=== PATIENT | female | born 1955 | race Caucasian/White ===

== ENCOUNTER → 2017-09-11 | Outpatient (CLI) | payer OTHER ==
[2017-09-11] MEDS: REGADENOSON 0.4 MG/5 ML DISP.SYRIN. IV (08:15)
== END | disposition home or self-care (01) ==
LOC: NM 07:41
DX: I36.1 Nonrheumatic tricuspid (valve) insufficiency (principal); I27.20 Pulmonary hypertension, unspecified; I10 Essential (primary) hypertension; E78.5 Hyperlipidemia, unspecified; E78.00 Pure hypercholesterolemia, unspecified; J44.9 Chronic obstructive pulmonary disease, unspecified
CPT/HCPCS: 78452; 93017; 93306; 96374; 96375; 96376; A9500; J2785

== ENCOUNTER 2018-02-06 06:04 | Day surgery (SDC) | payer OTHER ==
[~2018-02-06] VITALS: Ht 167.6 cm; Wt 71.7 kg
[~2018-02-06 06:04] MED LIST: ACET325T9 PO; ALBU0.63 IH; AMIT10TA PO; ATOR10TA PO; ATOR20TA PO; AZEL137S3 NS; BUDE10.2 IH; BYSTOLIC10 MG PO; BYSTOLIC20 MG PO; CETI10TA22 PO; GABA-585 PO; GLYC10.7 IH; GUAI12003 PO; HYDR-2145 PO; METF500T16 PO; MONT10TA6 PO; POTA10PI IV; POTA10TA31 PO; POTA20TA82 PO; PROTONIX PO; ROFL500T7 PO; SULF1TAB24 PO; VITAMIN D PO; XOPENEX HFA15 GM IH; ZOLP10TA PO
[2018-02-06] MEDS ORDERED: fentaNYL PF VIAL 100 MCG/2 ML VIAL IV PRN ×2 (07:00)
[2018-02-06] MEDS ORDERED: HYDROmorphone 2 MG/ML VIAL IV PRN (07:00)
[2018-02-06] MEDS ORDERED: IV RINGERS,LACTATED 1000ML 1,000 ML IV SCH (07:00)
[2018-02-06] MEDS ORDERED: LIDOCAINE 1% PF 2 ML VIAL. ID PRN (07:00)
[2018-02-06] MEDS ORDERED: PROPOFOL 20 ML IV ONE ×2 (07:00→07:39)
[2018-02-06] MEDS ORDERED: MORPHINE SULFATE 2 MG/ML VIAL. IV PRN (07:00)
[2018-02-06] MEDS ORDERED: ONDANSETRON PF 4 MG/2 ML VIAL. IV PRN (07:00)
[2018-02-06] MEDS ORDERED: PROCHLORPERAZINE 10 MG/2 ML VIAL. IV PRN (07:00)
[2018-02-06] MEDS ORDERED: LIDOCAINE 2% PF Vial for OR 5 ML VIAL. ONE ×4 (07:01→07:19)
[2018-02-06] MEDS ORDERED: ONDANSETRON PF 4 MG/2 ML VIAL. ONE ×2 (07:01)
[2018-02-06] MEDS ORDERED: DEXAMETHASONE SOD PHOS 20 MG/5 ML VIAL. ONE (07:01)
[2018-02-06] MEDS ORDERED: LIDOCAINE 1% 20 ML VIAL. ONE (07:02)
[2018-02-06] MEDS ORDERED: fentaNYL PF VIAL 100 MCG/2 ML VIAL ONE (07:02)
[2018-02-06] MEDS ORDERED: BUPIVACAINE MPF 0.5% 30 ML VIAL. ONE (07:02)
[2018-02-06] MEDS ORDERED: MIDAZOLAM HCL/PF 2 MG/2 ML VIAL. ONE (07:03)
--- NOTE | 2018-02-06 07:07 | DISCH ---
DISCHARGE INSTRUCTIONS Condition on Discharge Condition on Discharge: Stable Activity After Discharge Activity Instructions for Disc: Other, see below Other activity instructions: wiggle fingers Bathing Instructions: Shower-keep dressing dry Lifting Instructions after Dis: No heavy lifting Weight Bearing Status after Di: As tolerated Diet after Discharge Diet after Discharge: Regular Wound Incision Care Wound/Incision Care: Ice to area for comfort, Keep wound/cast CDI, Keep wound elevated, Change dressing Other wound/incision instructi: ok to change dressing in [address] after DC Call your doctor for: Concerns you may have Follow-Up Follow up with: Kayla in 2 wks ROMAIN CARRERA II, MD Feb 06, 2018 07:07
[2018-02-06] MEDS ORDERED: CLINDAMYCIN 900MG PREMIX 50 ML IV ONE (08:00)
--- NOTE | 2018-02-06 08:12 | PDOC4 ---
Operative Note Operative Note Date of procedure: 01/29/2018 Surgeon: Benitez Carrera Preoperative diagnosis: #1 right carpal tunnel syndrome #2 right trigger finger, first digit Postoperative diagnosis: Same Procedures performed: #1 open right carpal tunnel release Open right first digit trigger finger release Anesthesia: Jennifer block with sedation Tourniquet time: 30 minutes Blood loss: 5 mL Complications: None Findings: Normal-appearing median nerve, thickened nodule in the flexor tendon at thumb Reason for procedure: Patient is very pleasant 63-year-old female who have been following for her carpal tunnel syndrome and trigger thumb of her right hand. She had tried conservative therapies including anti-inflammatories, nighttime splinting, and carpal tunnel injections. These failed to provide her adequate relief from her symptoms and therefore we discussed the risks, benefits, and alternatives to the above surgery and she wished to proceed. Description of procedure: Patient was greeted in the preoperative area by myself for the correct extremity was verified and marked. She was brought back to the operative suite and box were started as she was brought back. Once in the operating room, she had successful induction of a Jennifer block with sedation. The right upper extremity was then prepped and draped in our usual sterile fashion we conducted our standard preoperative timeout. After this, I identified a crease in her hand from her distal wrist crease and incised through this into her palm. I used bipolar cautery for hemostasis. I used a mosquito to spread down to the level of the palmar fascia and placed a self- retaining retractor. The palmar fascia was incised in line with the skin incision. I repositioned my retractor. Identified the transverse carpal ligament and release this sharply with a scalpel. I placed a Ragnell retractor distally and into my release with the tenotomy into the palm. I then performed the same maneuver to release the distal antebrachial fascia and an ulnar directed fashion into the wrist. I used the tip of the tenotomies palpate along the course of the nerve to ensure that accomplished a complete release and I was confident I had. I then directed my attention to her thumb and palpated for the nodule and made an incision, proximal 1 cm over the neck of the first metacarpal. Bipolar cautery was used for hemostasis. I used a mosquito clamp to spread above the tendon longitudinally. Identified the A1 quique and release this with tenotomy scissors. I then delivered the tendon from the operative field with a mosquito to help and try to accomplish a complete release. After this, irrigated both incisions out. I then closed the incisions with simple interrupted 3-0 nylon. I then injected a local anesthetic mixture noted to the mary-incisional skin at both areas. Xeroform followed by a soft bulky dressing was applied to her hand and thumb. No complications. All counts correct 2 prior to wound closure. At the inclusion of surgery, she was awakened from her anesthetic and the tourniquet was let down. She was transferred gently supine to the recovery room cart. Postoperative plan is to discharge her home. Active range of motion at wrist and fingers was encouraged. Wound care was discussed and given written form. She will follow up with me in 2 weeks, sooner should a problem arise. BENITEZ CARRERA II, MD Feb 06, 2018 08:11
[2018-02-06] MEDS ORDERED: OXYC1TAB15 PO (08:18)
[2018-02-06] MEDS ORDERED: DOCU-109 PO (08:19)
[2018-02-06] MEDS ORDERED: ONDA8TAB9 SL (08:21)
[2018-02-06] MEDS ORDERED: oxyCODONE/APAP 5/325 1 TAB TABLET PO ONE (08:30)
[2018-02-06 09:39] VITALS: BP 116/68
== END 2018-02-06 10:00 | disposition home or self-care (01) ==
LOC: SURG 06:04
PROVIDERS: ATTEND Orthopaedic Surgery Sports Medicine
DX: G56.01 Carpal tunnel syndrome, right upper limb (principal); M65.311 Trigger thumb, right thumb; Z98.890 Other specified postprocedural states; Z88.1 Allergy status to other antibiotic agents; Z88.5 Allergy status to narcotic agent; Z91.041 Radiographic dye allergy status; Z88.6 Allergy status to analgesic agent; Z91.013 Allergy to seafood; Z88.8 Allergy status to other drugs, medicaments and biological substances
CPT/HCPCS: 26055; 64721; 82962; J2001; J2250; J2704; J3490; J1100; J2405; J3010

== ENCOUNTER 2019-05-21 15:53 | Inpatient (IN) | payer BC, OTHER ==
[~2019-05-21] VITALS: Ht 167.6 cm; Wt 73.4 kg
[~2019-05-21 15:53] MED LIST changes: -CETI10TA22 PO; +CETI10TA24 PO; +DOCU-109 PO; +MONT10TA49 PO; -MONT10TA6 PO; +ONDA8TAB9 SL; +OXYC1TAB15 PO; +POTA20TA4 PO; -POTA20TA82 PO
--- NOTE | 2019-05-21 16:23 | PHYS DOC ---
Past Medical History Past Medical History: Asthma, Bronchitis, High Cholesterol, Hypertension, Other Additional Past Medical Histor: PE, DVT, bulging discs Past Surgical History: Knee Replacement, Tonsillectomy, Other Additional Past Surgical Histo: IVC filter Smoking Status: Never Smoker Alcohol Use: None Drug Use: None Adult General Chief Complaint Chief Complaint: CHEST PAIN HPI HPI Patient is a 64 year old [female who presents with chest pressure. Patient reports for the last 12 hours. States that she started to feel a bit of pressure last night, today and the pressures continued. States she has a history of prior DVT, prior pulmonary embolism, had an IVC filter placed, which had since dislodged and ended up in her lungs. Reports she has chronic chest pain due to the IVC filter in her lungs, however the discomfort she feels today is different. Patient denies any nausea. Does states she has noticed some swelling in her feet, with some increased swelling mostly behind her knees. Denies cough. Does states she also has had some increased exertional dyspnea over the last few days. Reports her discomfort today is just a pressure in her chest Review of Systems Review of Systems Constitutional: Denies fever or chills [] Eyes: Denies change in visual acuity, redness, or eye pain [] HENT: Denies nasal congestion or sore throat [] Respiratory: Denies cough does report she feels short of breath Cardiovascular: No additional information not addressed in HPI [] GI: Denies abdominal pain, nausea, vomiting, bloody stools or diarrhea [] : Denies dysuria or hematuria [] Musculoskeletal: Denies back pain or joint pain reports she feels her lower extremities are more swollen [] Integument: Denies rash or skin lesions [] Neurologic: Denies headache, focal weakness or sensory changes [] Endocrine: Denies polyuria or polydipsia [] All other systems were reviewed and found to be within normal limits, except as documented in this note. Current Medications Current Medications Current Medications Medications (Trade) Dose Ordered Sig/Mitra Start Time Stop Time Status Last Admin Dose Admin Enoxaparin Sodium (Lovenox 80mg Syringe) 70 mg 1X ONCE 05/21/19 18:30 05/21/19 18:38 DC 05/21/19 19:11 70 MG Ondansetron HCl (Zofran) 4 mg PRN Q8HRS PRN 05/21/19 18:30 05/22/19 18:29 05/21/19 19:11 4 MG Sodium Chloride 1,000 ml @ 100 mls/hr Q10H 05/21/19 18:30 05/22/19 18:29 05/21/19 19:12 100 MLS/HR Allergies Allergies Allergies Coded Allergies Type Severity Reaction Last Updated Verified Iodinated Contrast Media Allergy Intermediate (allergy to shellfish) 02/06/18 Yes amoxicillin Allergy Intermediate 02/06/18 Yes azithromycin Allergy Intermediate 02/06/18 Yes duloxetine Allergy Intermediate 02/06/18 Yes formoterol Allergy Intermediate 02/06/18 Yes levofloxacin Allergy Intermediate 02/06/18 Yes losartan Allergy Intermediate 02/06/18 Yes mometasone furoate Allergy Intermediate 02/06/18 Yes nickel Allergy Intermediate 02/06/18 Yes pregabalin Allergy Intermediate 02/06/18 Yes shellfish derived Allergy Intermediate 02/06/18 Yes morphine Adverse Reaction Intermediate nausea and vomiting 02/06/18 Yes Physical Exam Physical Exam Constitutional: Well developed, well nourished, no acute distress, non-toxic appearance. [] HENT: Normocephalic, atraumatic, oropharynx moist, no oral exudates, nose normal. [] Eyes: PERRLA, EOMI, conjunctiva normal, no discharge. [] Neck: Normal range of motion, no tenderness, supple, no stridor. [] Cardiovascular:Heart rate regular rhythm, no murmur [] Lungs & Thorax: Bilateral breath sounds clear to auscultation speaks in multiple word sentences, however does appear to have mild dyspnea, no wheezing noted [] Abdomen: Bowel sounds normal, soft, no tenderness, no masses, no pulsatile masses. [] Skin: Warm, dry, no erythema, no rash. [] Back: No tenderness, no CVA tenderness. [] Extremities: No tenderness, no cyanosis, no clubbing, ROM intact, no edema. No swelling noted. No lesions noted to lower legs. [] Neurologic: Alert and oriented X 3, normal motor function, normal sensory function, no focal deficits noted. [] Psychologic: Affect normal, judgement normal, mood normal. [] Current Patient Data Vital Signs Vital Signs Date Time Temp Pulse Resp B/P (MAP) Pulse Ox O2 Delivery O2 Flow Rate FiO2 05/21/19 18:00 70 21 135/71 (92) 97 Room Air 05/21/19 16:12 98.4 98.4 Lab Values Laboratory Tests Test 05/21/19 16:05 White Blood Count 5.9 x10^3/uL (4.0-11.0) Red Blood Count 4.30 x10^6/uL (3.50-5.40) Hemoglobin 13.3 g/dL (12.0-15.5) Hematocrit 39.2 % (36.0-47.0) Mean Corpuscular Volume 91 fL (79-100) Mean Corpuscular Hemoglobin 31 pg (25-35) Mean Corpuscular Hemoglobin Concent 34 g/dL (31-37) Red Cell Distribution Width 12.9 % (11.5-14.5) Platelet Count 281 x10^3/uL (140-400) Neutrophils (%) (Auto) 52 % (31-73) Lymphocytes (%) (Auto) 37 % (24-48) Monocytes (%) (Auto) 7 % (0-9) Eosinophils (%) (Auto) 3 % (0-3) Basophils (%) (Auto) 1 % (0-3) Neutrophils # (Auto) 3.1 x10^3/uL (1.8-7.7) Lymphocytes # (Auto) 2.2 x10^3/uL (1.0-4.8) Monocytes # (Auto) 0.4 x10^3/uL (0.0-1.1) Eosinophils # (Auto) 0.2 x10^3/uL (0.0-0.7) Basophils # (Auto) 0.1 x10^3/uL (0.0-0.2) Prothrombin Time 12.4 SEC (11.7-14.0) Prothrombin Time INR 1.0 (0.8-1.1) D-Dimer (Adelia) 0.60 ug/mlFEU (0.00-0.50) H Sodium Level 141 mmol/L (136-145) Potassium Level 3.6 mmol/L (3.5-5.1) Chloride Level 102 mmol/L (98-107) Carbon Dioxide Level 30 mmol/L (21-32) Anion Gap 9 (6-14) Blood Urea Nitrogen 18 mg/dL (7-20) Creatinine 1.0 mg/dL (0.6-1.0) Estimated GFR (Cockcroft-Gault) 56.0 BUN/Creatinine Ratio 18 (6-20) Glucose Level 97 mg/dL (70-99) Calcium Level 9.5 mg/dL (8.5-10.1) Magnesium Level 1.8 mg/dL (1.8-2.4) Total Bilirubin 0.3 mg/dL (0.2-1.0) Aspartate Amino Transferase (AST) 17 U/L (15-37) Alanine Aminotransferase (ALT) 23 U/L (14-59) Alkaline Phosphatase 82 U/L (46-116) Troponin I Quantitative < 0.017 ng/mL (0.000-0.055) KI-Wpf-U-Type Natriuretic Peptide 104 pg/mL (0-124) Total Protein 7.6 g/dL (6.4-8.2) Albumin 4.2 g/dL (3.4-5.0) Albumin/Globulin Ratio 1.2 (1.0-1.7) Lipase 225 U/L (73-393) Laboratory Tests 05/21/19 16:05 Laboratory Tests 05/21/19 16:05 EKG EKG Normal sinus rhythm, no STEMI per Dr. Roche at 1605 [] Radiology/Procedures Radiology/Procedures No radiographic evidence for acute cardiopulmonary process. Per Dr Valle, Radiology[] Course & Med Decision Making Course & Med Decision Making Pertinent Labs and Imaging studies reviewed. (See chart for details) [Discussed findings with patient, with history of prior DVT and pulmonary embolism, with shortness of breath, chest discomfort, elevated d-dimer, and need to further evaluate for pulmonary embolism. Discussed patient allergy, reports iodine makes her throat close up, rash, shortness of breath. Patient does report she has had a VQ scan in the past. Patient agreeable to admission for VQ scan if needed, will discuss with Dr. Chairez PERC - 2 ] Discussed with Dr. Chairez, agrees to admission. Plan to administer anticoagulant here. With plan for VQ scan tomorrow. Will monitor labs tonight. Patient agreement with plan with no further questions or concerns. Dragon Disclaimer Dragon Disclaimer This electronic medical record was generated, in whole or in part, using a voice recognition dictation system. Departure Departure Impression: Primary Impression: Elevated d-dimer Additional Impression: Shortness of breath Disposition: ADMITTED INPATIENT Admitting Physician: Margi Chairez Condition: STABLE Referrals: MARGI CHAIREZ MD (PCP) Problem Qualifiers ARPITA WHEAT APRN May 21, 2019 16:23
--- NOTE | 2019-05-21 16:25 | EKG ---
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
[2019-05-21 16:30] LABS: BASO # 0.1 x10^3/uL (0.0-0.2); BASO % 1 % (0-3); EOS # 0.2 x10^3/uL (0.0-0.7); EOS % 3 % (0-3); HEMATOCRIT 39.2 % (36.0-47.0); HEMOGLOBIN 13.3 g/dL (12.0-15.5); LYMPH # 2.2 x10^3/uL (1.0-4.8); LYMPH % 37 % (24-48); MEAN CORPUSCULAR HEMOGLOBIN 31 pg (25-35); MEAN CORPUSCULAR HGB CONC 34 g/dL (31-37); MEAN CORPUSCULAR VOLUME 91 fL (79-100); MONO # 0.4 x10^3/uL (0.0-1.1); MONO % 7 % (0-9); NEUT # 3.1 x10^3/uL (1.8-7.7); NEUT % 52 % (31-73); PLATELET COUNT 281 x10^3/uL (140-400); RED CELL DISTRIBUTION WIDTH 12.9 % (11.5-14.5); WHITE BLOOD COUNT 5.9 x10^3/uL (4.0-11.0)
[2019-05-21 16:38] LABS: PROTHROMBIN TIME PATIENT 12.4 SEC (11.7-14.0)
[2019-05-21 16:41] LABS: D-DIMER 0.6 ug/mlFEU (0.00-0.50)
[2019-05-21 16:50] LABS: CALCIUM 9.5 mg/dL (8.5-10.1); POTASSIUM 3.6 mmol/L (3.5-5.1)
[2019-05-21 16:58] LABS: ALBUMIN 4.2 g/dL (3.4-5.0); ALBUMIN/GLOBULIN RATIO 1.2 (1.0-1.7); MAGNESIUM 1.8 mg/dL (1.8-2.4); TOTAL BILIRUBIN 0.3 mg/dL (0.2-1.0); TOTAL PROTEIN 7.6 g/dL (6.4-8.2)
--- NOTE | 2019-05-21 18:12 | RAD ---
EXAM: AP View of the chest DATE: 05/21/2019 5:31 PM INDICATION: Shortness of air COMPARISON: 01/06/2016 FINDINGS: The heart is not enlarged. Mediastinal and hilar contours are normal. No focal parenchymal airspace opacity. No pleural effusion or pneumothorax. Shoulder joint degenerative changes are seen. IMPRESSION: 1. No radiographic evidence for acute cardiopulmonary process. Electronically signed by: William Valle MD (05/21/2019 6:09 PM) [id number]
[2019-05-21] MEDS: ONDANSETRON PF 4 MG/2 ML VIAL. IV PRN (19:11)
[2019-05-21] MEDS: IV NORMAL SALINE 1000ML BAG 1,000 ML IV SCH (19:12)
--- NOTE | 2019-05-21 21:00 | NUR ---
The patient, MAURIZIO ARRIAGA, 64 y/o, F admitted by MARGI LOVETT MD, was given written information regarding hospital policies, unit procedures and contact persons. patient transferred to room via wheelchair by ED staff member. Valuables were checked and noted. Patient denies any needs at this time. patient is laying in bed watching TV at this time. This RN will continue to monitor the patient at this time.
[2019-05-21] MEDS ORDERED: PANT20TA2 PO (22:12)
[2019-05-21 22:47] VITALS: BP 109/58
[2019-05-21] MEDS ORDERED: ZOLPIDEM 5 MG TABLET. PO PRN (23:00)
[2019-05-21] MEDS: CETIRIZINE HCL 10 MG TABLET. PO SCH (23:42)
[2019-05-21] MEDS: ZOLPIDEM 5 MG TABLET. PO SCH (23:42)
[2019-05-21] MEDS: ATORVASTATIN CALCIUM 20 MG TABLET PO SCH (23:42)
[2019-05-21] MEDS: PANTOPRAZOLE 40 MG TABLET.DR. PO SCH (23:42)
[2019-05-21] MEDS: AMITRIPTYLINE HCL 10 MG TABLET. PO SCH (23:42)
[2019-05-21] MEDS: GABAPENTIN 100 MG CAPSULE. PO SCH (23:42)
[2019-05-21] MEDS: MONTELUKAST SODIUM 10 MG TABLET. PO SCH (23:44)
[2019-05-22 03:06] VITALS: BP 87/50
[2019-05-22] MEDS: IV NORMAL SALINE 1000ML BAG 1,000 ML IV SCH ×2 (03:34→13:33)
[2019-05-22] MEDS: ONDANSETRON PF 4 MG/2 ML VIAL. IV PRN (03:37)
[2019-05-22 07:00] VITALS: BP 98/62
[2019-05-22] MEDS: PANTOPRAZOLE 40 MG TABLET.DR. PO SCH ×2 (07:59→16:34)
[2019-05-22] MEDS: metFORMIN 500 MG TABLET PO SCH ×2 (07:59→17:11)
[2019-05-22] MEDS: GABAPENTIN 100 MG CAPSULE. PO SCH ×3 (08:54→21:09)
--- NOTE | 2019-05-22 09:33 | NUR ---
SW following. Discussed with RN, pt from home with . Dr Garza has been consulted. RN advised no SW needs at this time, pt gets around fine. SW will continue to follow for any discharge needs.
--- NOTE | 2019-05-22 09:34 | HP ---
ADMIT DATE: 05/21/2019 CHIEF COMPLAINT AND HISTORY OF PRESENT ILLNESS: This 64-year-old white female is followed in my office. The patient presented on the day of admission with chest pressure. She was sent to the Emergency Room with a history of multiple DVTs and PEs. She has a prior IVC filter that was dislodged and winded up in the lungs according to her. The pressure that she is feeling on the day of admission is different. She has noted some bilateral lower extremity edema, particularly in her knee area. She has had increased and exertional dyspnea over the last few days, had an elevated D-dimer, had IODINATED CONTRAST allergy and was unable to do a V/Q on the day of admission, was admitted overnight for V/Q scanning and further evaluation. PAST MEDICAL HISTORY: Remarkable for asthma, hyperlipidemia, hypertension, PE, DVT. PRIOR SURGICAL HISTORY: Remarkable for right knee replacement, tonsillectomy, IVC filter. SOCIAL HISTORY: She is a lifetime nonsmoker. No alcohol, no drugs. FAMILY HISTORY: Positive for atherosclerotic heart disease. MEDICATIONS: Listed on the computer and have been addressed. ALLERGIES: SHE IS ALLERGIC TO IODINE, PENICILLIN, AZITHROMYCIN, FORMOTEROL, DULOXETINE, LEVAQUIN, LOSARTAN, MOMETASONE, MORPHINE, NICKEL, PREGABALIN, SHELLFISH DERIVATIVES. REVIEW OF SYSTEMS: As mentioned above. PHYSICAL EXAMINATION: GENERAL: She is a well-developed, well-nourished white female, in no acute distress in bed. VITAL SIGNS: Stable. She is afebrile. HEENT: Unremarkable. NECK: Supple, without adenopathy or thyromegaly. CHEST: Clear to auscultation and percussion. HEART: Regular rate and rhythm without S3, S4 or murmur. ABDOMEN: Soft, nontender, without hepatosplenomegaly or masses. EXTREMITIES: Without cyanosis, clubbing or significant edema. NEUROLOGIC: She is intact. Chest x-ray is within normal limits. D-dimer is elevated. CBC is unremarkable. Troponin x 3 is negative. CMP is unremarkable. IMPRESSION: 1. Chest pressure/pain. 2. Knee pain. 3. Other problems listed above. PLAN: The patient has been admitted. We will await V/Q scanning here today. I am going to ask Ortho to see her for the knee pain while she is here and the patient will be monitored, managed and treated appropriately. MARGI LOVETT MD DR: Robbie JOB#: [id number] / [id number]
[2019-05-22 11:00] VITALS: BP 105/61
--- NOTE | 2019-05-22 14:47 | RAD ---
NUCLEAR MEDICINE PERFUSION SCAN History: Chest pain, elevated d-dimer, shortness of breath x3 days. History of DVT and PE 9 years ago. Comparison: AP chest, prior day. Technique: Perfusion portion performed after intravenous administration of 5.3 mCi Technetium 99m MAA. Multiple projection planar images of the lungs were obtained. Findings: Patient refused mask for ventilation images due to claustrophobia. Perfusion images demonstrate no perfusion defects. IMPRESSION: Perfusion only imaging. No defects are identified to suggest pulmonary embolus. Electronically signed by: Bernard Cardona MD (05/22/2019 2:43 PM) [id number]
[2019-05-22] MEDS: ACETAMINOPHEN 325 MG TABLET. PO PRN (14:58)
[2019-05-22 15:00] VITALS: BP 99/66
[2019-05-22] MEDS: MONTELUKAST SODIUM 10 MG TABLET. PO SCH (17:10)
[2019-05-22] MEDS: CETIRIZINE HCL 10 MG TABLET. PO SCH (17:11)
[2019-05-22 19:00] VITALS: BP 107/66
[2019-05-22] MEDS: AMITRIPTYLINE HCL 10 MG TABLET. PO SCH (21:09)
[2019-05-22] MEDS: ATORVASTATIN CALCIUM 20 MG TABLET PO SCH (21:09)
[2019-05-22] MEDS: ZOLPIDEM 5 MG TABLET. PO SCH (21:09)
[2019-05-22] MEDS ORDERED: ALBUTEROL SULFATE 2.5 MG/3 ML NEBU. NEB PRN (21:30)
[2019-05-22 23:00] VITALS: BP 124/69
[2019-05-23 03:00] VITALS: BP 95/61
[2019-05-23 07:00] VITALS: BP 137/81
[2019-05-23] MEDS: ALBUTEROL SULFATE 2.5 MG/3 ML NEBU. NEB SCH ×3 (07:32→15:26)
[2019-05-23] MEDS ORDERED: methylPREDNISolone ACETATE 80 MG/ML VIAL. INJ ONE (07:45)
[2019-05-23] MEDS ORDERED: BUPIVACAINE-EPI 0.5%-1:200000 MPF 30 ML VIAL. INJ ONE (07:45)
--- NOTE | 2019-05-23 08:19 | PDOC ---
GENERAL General: vss and afebrile. awake and alert. still ill defined chest pressure and some so b. VQ probably negative. with hx pulmonary hpt will ask cardiology for opinion prior to dc. VITAL SIGNS/I&O Vital Signs/I&O: Vital Signs Date Time Temp Pulse Resp B/P (MAP) Pulse Ox O2 Delivery O2 Flow Rate FiO2 05/23/19 07:34 96 Room Air 05/23/19 07:00 97.8 79 16 137/81 (99) 97.8 I & O 05/22/19 05/22/19 05/23/19 15:00 23:00 07:00 Intake Total 980 ml 120 ml 300 ml Balance 980 ml 120 ml 300 ml ALLERGIES Allergies: Allergies Coded Allergies Type Severity Reaction Last Updated Verified Iodinated Contrast Media Allergy Intermediate (allergy to shellfish) 02/06/18 Yes amoxicillin Allergy Intermediate 02/06/18 Yes azithromycin Allergy Intermediate 02/06/18 Yes duloxetine Allergy Intermediate 02/06/18 Yes formoterol Allergy Intermediate 02/06/18 Yes levofloxacin Allergy Intermediate 02/06/18 Yes losartan Allergy Intermediate 02/06/18 Yes mometasone furoate Allergy Intermediate 02/06/18 Yes nickel Allergy Intermediate 02/06/18 Yes pregabalin Allergy Intermediate 02/06/18 Yes shellfish derived Allergy Intermediate 02/06/18 Yes morphine Adverse Reaction Intermediate nausea and vomiting 02/06/18 Yes MEDS Medications: Current Medications Medications (Trade) Dose Ordered Sig/Mitra Route PRN Reason Start Time Stop Time Status Last Admin Dose Admin Acetaminophen (Tylenol) 650 mg PRN Q6HRS PRN PO MILD PAIN / TEMP 05/22/19 14:30 05/22/19 14:58 Albuterol Sulfate (Ventolin Neb Soln) 2.5 mg RTQID NEB 05/23/19 08:00 05/23/19 07:32 LAB Lab: Laboratory Tests Test 05/22/19 11:40 Troponin I Quantitative < 0.017 ng/mL (0.000-0.055) MARGI LOVETT MD May 23, 2019 08:19
[2019-05-23] MEDS: ACETAMINOPHEN 325 MG TABLET. PO PRN ×2 (08:38→13:39)
[2019-05-23] MEDS: metFORMIN 500 MG TABLET PO SCH ×2 (08:38→17:16)
[2019-05-23] MEDS: PANTOPRAZOLE 40 MG TABLET.DR. PO SCH ×2 (08:38→17:16)
[2019-05-23] MEDS: GABAPENTIN 100 MG CAPSULE. PO SCH ×2 (08:38→13:45)
--- NOTE | 2019-05-23 10:31 | CONS ---
DATE OF CONSULTATION: 05/23/2019 REQUESTING PHYSICIAN: Dr. Chairez. REASON FOR CONSULTATION: Left knee pain and swelling. HISTORY OF PRESENT ILLNESS: The patient is a 64-year-old female who presented to the hospital for chest pressure and has a history of previous DVT and pulmonary embolism. She underwent a ventilation perfusion scan with low probability. In terms of her orthopedic issues, she has had left knee pain and swelling increased with activity and resolves with rest, in fact a couple of days that she has been in the hospital. Her left knee swelling has gone down significantly and she indicates, however, when she gets back to any type of activity it always returns. Other than anti-inflammatory use, she has had no other real treatment or injections in the left knee. She did have a right total knee arthroplasty elsewhere several years prior, and I think has been seen by Dr. Garza in the clinic, but has less than ideal results from her total knee arthroplasty on the right. She cannot get it all the way out straight. She has difficulty descending stairs and the bending is short of 90 degrees, making it difficult for her to get leg under her and up out of the chair. PAST MEDICAL HISTORY: Significant for history of pulmonary embolism, DVT as noted above, hypertension, hyperlipidemia and asthma. PAST SURGICAL HISTORY: Right total knee arthroplasty, placement of an IVC filter and a tonsillectomy. SOCIAL HISTORY: Denies smoking, alcohol or drug use. Otherwise, is very active. FAMILY HISTORY: Significant for heart disease. MEDICATIONS: List is reviewed. ALLERGIES: SHE HAS MULTIPLE ALLERGIES INCLUDING PENICILLIN, IODINE, AZITHROMYCIN, LEVAQUIN, LOSARTAN, MOMETASONE, DULOXETINE, MORPHINE, NICKEL, PREGABALIN, SHELLFISH AND FORMOTEROL. REVIEW OF SYSTEMS: Significant really for the left knee pain and swelling and the chronic right knee stiffness. She denies any focal weakness, numbness, tingling or other extremity or joint pain. PHYSICAL EXAMINATION: GENERAL: A pleasant, cooperative 64-year-old female, alert and oriented, no acute distress. EXTREMITIES: On examination of the lower extremities, range of motion of the right knee is about 6 degrees short of full extension to about 85 degrees knee flexion. She has good ligament stability and patellofemoral tracking, no effusion is noted. Incision is well healed. Examination of the left knee reveals overall good alignment. Ligaments are stable. She has good patellofemoral tracking with moderate crepitus. No tilt or instability. No effusion is present. No fullness in the popliteal fossa. She has no evidence of calf swelling or tenderness. Normal alignment, stability, bilateral hips and ankles and overall intact motor function, distal pulses, sensation, reflexes, skin in both lower extremities throughout. IMAGING: Previous standing x-rays from 2016 show total knee arthroplasty on the right and some mild degenerative changes on the left knee. IMPRESSION: Left knee pain, swelling, and degenerative changes. TREATMENT PLAN: She has really had now been very low probability for pulmonary embolism. No current swelling in the left knee, but she does indicate the recurrence of the symptoms with any type of activity and after discussing treatment options of the three general categories of injection for example corticosteroid, viscosupplementation or biological, we discussed the relative risks and benefits of each. Viscosupplementation is not an option at all in the hospital with insurance restrictions and she does wish to proceed with a corticosteroid injection, which was administered after informed consent was obtained on the left knee under sterile conditions from a suprapatellar approach. I would be happy to see her back on an as necessary basis. I told her that Dr. Chairez could also do these in his office. As she has [employer], it would be unlikely that they would cover viscosupplementation based on experience and I did have a fairly detailed discussion with her that unfortunately the fact that she had stiffness in the right knee is likely predictive of stiffness after a knee arthroplasty on the other side and that would certainly be my last resort as far as recommendations, especially since she is not very happy with the overall result of the knee arthroplasty on the right, which was done elsewhere a while ago. She indicated understanding of this, appreciated the discussion and followup can be on an as needed basis based on from an orthopedic standpoint. MARY KEE MD DR: LATISHA/becki JOB#: [id number] / [id number]
--- NOTE | 2019-05-23 10:56 | NUR ---
SW following. Discussed with RN, pt transferring to [address] [place] [address]. Pt had left knee injected, doing better today per RN. RN anticipates no SW needs. TIERRA will continue to follow. Addendum: 05/23/19 at 1105 by ELIZABET MAYORGA CORRECTION pt did not have left knee injected - wrong pt, please disregard.
[2019-05-23 11:00] VITALS: BP 107/69
[2019-05-23] MEDS ORDERED: METOPROLOL TART IMMED RELEASE 50 MG TABLET. PO SCH (11:00)
[2019-05-23] MEDS ORDERED: hydroCHLOROthiazide 25 MG TABLET PO SCH (11:00)
--- NOTE | 2019-05-23 11:46 | PDOC2 ---
LUDWIN ABURTO [employer] 05/23/19 1146: CARDIAC CONSULT DATE OF CONSULT Date of Consult DATE: 05/23/19 TIME: 11:40 REASON FOR CONSULT Reason for Consult: Chest pain REFERRING PHYSICIAN Referring Physician: Contreras SOURCE Source: Chart review, Patient HISTORY OF PRESENT ILLNESS HISTORY OF PRESENT ILLNESS This is a pleasant 64 yo female admitted for complains of chest pain. Reports that she has intermittent chest heaviness nonradiating. No associated HOOD. Pt is able to load the laundry and carry it up and down the basement without difficulty. She appears anxious and her chest pain is left of the midsternal border that is reproducible with palpation. Denies any heartburn and with use of PPI. Reports no NSAID therapy but takes tylenol for pain. No recent intractable coughing, falls or any injury. She is worried about pulmonary HTN and no noted edema and negative for orthopnea and PND. Clinically no CHF. Reports no changes to activity tolerance. She is also worried about a wire in her vena cava to which her IVC filter was removed before but a part of it "wire" was left in place as this was not able to be retrieved. Her VSS and Hgb is stable. No abd pain nor significant back pain. Denies any palpitations or passing out. PAST MEDICAL HISTORY Cardiovascular: HTN, Hyperlipidemia Pulmonary: Asthma, Pulmonary embolus (with DVT) CENTRAL NERVOUS SYSTEM: Carpal Tunnel Syndrome, Periperal neuropathy Psych: Anxiety Musculoskeletal: low back pain, Osteoarthritis Renal/: UTI Endocrine: Diabetes (2) PAST SURGICAL HISTORY Past Surgical History: Total knee replacement (right), Other (IVC filter placement and removal) SOCIAL HISTORY Smoke: No ALCOHOL: none Lives: with Family CURRENT MEDICATIONS CURRENT MEDICATIONS Current Medications Medications (Trade) Dose Ordered Sig/Mitra Route PRN Reason Start Time Stop Time Status Last Admin Dose Admin Acetaminophen (Tylenol) 650 mg PRN Q6HRS PRN PO MILD PAIN / TEMP 05/22/19 14:30 05/23/19 08:38 Albuterol Sulfate (Ventolin Neb Soln) 2.5 mg RTQID NEB 05/23/19 08:00 05/23/19 11:18 Methylprednisolone Acetate (DEPO-Medrol 80MG VIAL) 80 mg 1X ONCE INJ 05/23/19 07:45 05/23/19 07:52 DC 05/23/19 08:50 Bupivacaine HCl/ Epinephrine Bitart (Sensorcain-Epi 0.5%-1:695995 Mpf) 30 ml 1X ONCE INJ 05/23/19 07:45 05/23/19 07:52 DC 05/23/19 08:50 ALLERGIES ALLERGIES: Coded Allergies: Iodinated Contrast Media (Verified Allergy, Intermediate, (allergy to shellfish), 02/06/18) amoxicillin (Verified Allergy, Intermediate, 02/06/18) azithromycin (Verified Allergy, Intermediate, 02/06/18) duloxetine (Verified Allergy, Intermediate, 02/06/18) formoterol (Verified Allergy, Intermediate, 02/06/18) levofloxacin (Verified Allergy, Intermediate, 02/06/18) losartan (Verified Allergy, Intermediate, 02/06/18) mometasone furoate (Verified Allergy, Intermediate, 02/06/18) nickel (Verified Allergy, Intermediate, 02/06/18) pregabalin (Verified Allergy, Intermediate, 02/06/18) shellfish derived (Verified Allergy, Intermediate, 02/06/18) morphine (Verified Adverse Reaction, Intermediate, nausea and vomiting, 02/06/18) ROS Review of System 14 point ROS evaluated with pertinent positives noted per HPI PHYSICAL EXAM General: Alert, Oriented X3, Cooperative, No acute distress HEENT: Atraumatic, Mucous membr. moist/pink Lungs: Clear to auscultation, Normal air movement Heart: Regular rate (SR), Normal S1, Normal S2, Other (2/6 systolic murmur to LLS border) Abdomen: Soft, No tenderness Extremities: No cyanosis, No edema Skin: No breakdown, No significant lesion Neuro: Normal speech, Sensation intact Psych/Mental Status: Mood NL MUSCULOSKELETAL: Osteoarthritic changes both hands VITALS/I&O VITALS/I&O: Vital Signs Date Time Temp Pulse Resp B/P (MAP) Pulse Ox O2 Delivery O2 Flow Rate FiO2 05/23/19 11:20 Room Air 05/23/19 07:34 96 05/23/19 07:00 97.8 79 16 137/81 (99) 97.8 I & O 05/22/19 05/22/19 05/23/19 15:00 23:00 07:00 Intake Total 980 ml 120 ml 300 ml Balance 980 ml 120 ml 300 ml ECHOCARDIOGRAM ECHOCARDIOGRAM <Conclusion> The left ventricular systolic function is normal. The ejection fraction is estimated at 55-60%. There is normal LV segmental wall motion. Mild tricuspid regurgitation. There is mild pulmonary hypertension. The PA pressure was estimated at 35 mmHg. There is no evidence of significant pericardial effusion. DATE: 09/11/17 0916 STRESS TEST STRESS TEST Conclusion 1. No evidence of EKG changes with stress testing. 2. Normal perfusion at stress/rest. 3. Low risk study. 4. EF > 60%. DATE: 09/13/17 1024 ASSESSMENT/PLAN ASSESSMENT/PLAN 1. Atypical chest pain: trops nml. EKG SR no acute changes. suspect MSK and anxiety. Good functional capacity 2. HTN: controlled 3. HLP 4. DM2 5. Prior IVC filter removal with hx of PE: V/Q low probability. pt concern about wire being left upon retrieval. Will defer to PCP 6. Anxiety Recommendations 1. Continue secondary prevention measures Continue home PPI 2. Could consider for outpt stress test if symptoms persist but at this time no further testing 3. Follow up in office SUHAS ROSS MD 05/24/19 1348: CARDIAC CONSULT ASSESSMENT/PLAN ASSESSMENT/PLAN Late entry for 05/23/2019 Pt. seen and examined. Agree with above TRANSPORTATION ANALYST note. LUDWIN ABURTO APRN May 23, 2019 11:46 SUHAS CHRISTENSEN MD May 24, 2019 13:48
--- NOTE | 2019-05-23 11:58 | NUR ---
Patient transferred to [address] [place] [id number] for cardiac consult and telemetry. Report called to MIGUE Foote. Patient was transferred via wheelchair with all personal belongings.
[2019-05-23 12:13] LABS: CHOLESTEROL/HDL RATIO 3.4
[2019-05-23 12:14] VITALS: BP 111/63
[2019-05-23 15:20] VITALS: BP 133/79
--- NOTE | 2019-05-23 18:00 | NUR ---
Escorted out patient to main entrance with belongings, IV and telemonitor taken off, and
[2019-05-23] MEDS ORDERED: POTASSIUM CHLORIDE 20 MEQ TABLET.ER. PO SCH (21:00)
--- NOTE | 2019-05-23 23:41 | DS ---
DATE OF DISCHARGE: 05/23/2019 PRIMARY DIAGNOSIS: Chest pain with shortness of breath. ADDITIONAL DIAGNOSES: 1. History of multiple pulmonary embolisms. 2. Elevated D-dimer. 3. Diabetes. 4. Left knee pain. CHIEF COMPLAINT AND HISTORY OF PRESENT ILLNESS: This 64-year-old white female admitted through the Emergency Room with shortness of breath, elevated D-dimer and inability to do a CTA of the chest due to IODINE ALLERGY. SUMMARY OF STAY: The patient was admitted, had 2 poor V/Q scanning the following day. She was unable to complete this task due to claustrophobia, but perfusion images demonstrate no perfusion deficits. Because of the chest pressure and shortness of breath, cardiology was asked to see her and felt it was atypical and did not recommend any further workup unless it persisted. She had serial negative troponins. A chest x-ray that showed no evidence of any problems. Had a CBC that was unremarkable. Chem panel done on admission that was essentially unremarkable. Again, troponins x 4 were done. Lipid panel was within normal limits with an LDL of 83. Sugars were good during the stay and always within normal limits. She complained of left knee pain involving the hastings bone for which I asked Ortho to come by and inject it with steroids, probably osteoarthritis while she was in the hospital. With Cardiology feeling no further workup was needed, the patient is discharged on 05/23/2019. DISPOSITION: The patient is discharged to home, ADA diet. ACTIVITY: As tolerated. FOLLOWUP: Office in 1 week. DISCHARGE MEDICATIONS: Listed on the med rec and have been addressed. MARGI LOVETT MD DR: BRIGETTE/becki JOB#: [id number] / [id number]
== END 2019-05-23 18:00 | disposition home or self-care (01) | DRG 554 ==
LOC: ER 15:53 → 5 SOUTH 18:31 → OBSVTOIN 05-22 14:30 → 6 SOUTH 05-23 11:35
PROVIDERS: ADMIT Family Medicine; ATTEND Family Medicine
PROC: 3E0U33Z Introduction of Anti-inflammatory into Joints, Percutaneous Approach (ICD-10-PCS; principal; 2019-05-22)
PROC: 3E0U3BZ Introduction of Anesthetic Agent into Joints, Percutaneous Approach (ICD-10-PCS; 2019-05-22)
DX: M17.12 Unilateral primary osteoarthritis, left knee (principal); R07.89 Other chest pain; E11.9 Type 2 diabetes mellitus without complications; E78.00 Pure hypercholesterolemia, unspecified; E78.5 Hyperlipidemia, unspecified; F41.9 Anxiety disorder, unspecified; G89.29 Other chronic pain; I10 Essential (primary) hypertension; Z96.651 Presence of right artificial knee joint; F40.240 Claustrophobia; J45.909 Unspecified asthma, uncomplicated; Z82.49 Family history of ischemic heart disease and other diseases of the circulatory system; Z86.711 Personal history of pulmonary embolism; Z86.718 Personal history of other venous thrombosis and embolism; Z87.440 Personal history of urinary (tract) infections; Z88.2 Allergy status to sulfonamides; Z88.8 Allergy status to other drugs, medicaments and biological substances; Z91.013 Allergy to seafood; Z79.899 Other long term (current) drug therapy; Z79.01 Long term (current) use of anticoagulants; Z90.49 Acquired absence of other specified parts of digestive tract
CPT/HCPCS: 36415; 71045; 78580; 80053; 80061; 82962; 83690; 83735; 83880; 84484; 85025; 85379; 85610; 93005; 94640; 94760; 96374; A9540; G0378; G0379; J1040; J1650; J2405; J3490; J7030; J7613

== ENCOUNTER → 2020-04-16 | Outpatient (CLI) | payer BC ==
[~2020-04-16] MED LIST changes: -CETI10TA24 PO; +CETI10TA74 PO; +FAMO10TA26 PO; +FLUC100T7 PO; +HYDR-2761 PO; +ONDA4TAB12 PO; +PANT20TA2 PO
== END ==
LOC: LAB 12:04
PROVIDERS: ATTEND Obstetrics & Gynecology
DX: Z01.812 Encounter for preprocedural laboratory examination (principal); Z20.822 Contact with and (suspected) exposure to COVID-19
CPT/HCPCS: U0003

== ENCOUNTER 2020-04-22 06:46 | Day surgery (SDC) | payer BC ==
[~2020-04-22] VITALS: Ht 167.6 cm; Wt 70.8 kg
[~2020-04-22 06:46] MED LIST changes: +AZTREONAM IV Push 1 GM VIAL. IVP PRN; +CLINDAMYCIN 900MG PREMIX 50 ML IV PRN; -HYDR-2761 PO; +HYDROmorphone 2 MG/ML VIAL IVP PRN; +IV RINGERS,LACTATED 1000ML 1,000 ML IV SCH; +MORPHINE SULFATE 2 MG/ML VIAL. IVP PRN; +PROCHLORPERAZINE 10 MG/2 ML VIAL. IVP PRN; +fentaNYL PF VIAL 100 MCG/2 ML VIAL IVP PRN
[2020-04-22] MEDS ORDERED: ENOXAPARIN 40 MG/0.4 ML SYRINGE. SQ ONE (07:30)
[2020-04-22] MEDS ORDERED: INSULIN LISPRO 100 UNIT/ML 3ML VIAL for OP,RR ONLY. SQ PRN (07:45)
[2020-04-22] MEDS ORDERED: ONDANSETRON PF 4 MG/2 ML VIAL. ONE (07:50)
[2020-04-22] MEDS ORDERED: LIDOCAINE 2% PF 5 ML VIAL. ONE (07:50)
[2020-04-22] MEDS ORDERED: DEXAMETHASONE SOD PHOS 4 MG/ML VIAL ONE ×2 (07:50→07:51)
[2020-04-22] MEDS ORDERED: FAMOTIDINE 20 MG/2 ML VIAL ONE (07:50)
[2020-04-22] MEDS ORDERED: PROPOFOL 10 MG/ML (20ML) VIAL. IV ONE (07:50)
[2020-04-22] MEDS ORDERED: MIDAZOLAM HCL/PF 2 MG/2 ML VIAL. ONE (07:53)
[2020-04-22] MEDS ORDERED: SCOPOLAMINE 1.5MG PATCH. TD SCH (09:00)
[2020-04-22] MEDS ORDERED: SILVER NITRATE STICK TP ONE ×3 (09:09→09:53)
[2020-04-22] MEDS ORDERED: PHENYLEPHRINE in 0.9% NACL PF 1 MG/10 ML SYRINGE. IV ONE (09:12)
[2020-04-22] MEDS ORDERED: SEVOFLURANE 31 TO 60 MINUTES. IH ONE (09:17)
--- NOTE | 2020-04-22 09:55 | PDOC ---
BRIEF OPERATIVE NOTE Date: Apr 22, 2020 Pre-Op Diagnosis PMB. endometrial thickening on sonogram Post-Op Diagnosis same with some evidence of scarring inside uterus Procedure Performed hs D&C with myosure Surgeon Dr. Mccann Anesthesiologist Dr. Phan Anesthesia Type: General Blood Loss 10cc IV Fluid see anesthesia records Urine Output straight cath prior Specimens Obtained endometrial currettings Findings uterus 8cm, some thickening and white scarring up near fundus Complications none Operative Note [id number] RACHEAL MCCANN MD Apr 22, 2020 09:54
[2020-04-22] MEDS ORDERED: fentaNYL PF VIAL 100 MCG/2 ML VIAL ONE ×2 (09:57→10:18)
[2020-04-22] MEDS ORDERED: NALOXONE 0.4 MG/ML VIAL. IV PRN (10:00)
[2020-04-22] MEDS ORDERED: SIMETHICONE 80 MG TAB.CHEW PO PRN (10:00)
[2020-04-22] MEDS: fentaNYL PF VIAL 100 MCG/2 ML VIAL IVP PRN ×3 (10:00→10:28)
[2020-04-22] MEDS ORDERED: 0.9 % SODIUM CHLORIDE 10 ML DISP.SYRIN. IV PRN (10:00)
[2020-04-22] MEDS ORDERED: CALCIUM CARBONATE 500 MG TAB.CHEW PO PRN (10:00)
[2020-04-22] MEDS ORDERED: MAG HYDROX/ALUMINUM HYD/SIMETH 30 ML ORAL.SUSP PO PRN (10:00)
[2020-04-22] MEDS ORDERED: HYDROcodone/APAP 5/325MG 1 TAB TABLET PO PRN (10:00)
[2020-04-22] MEDS ORDERED: diphenhydrAMINE HCL 25 MG CAPSULE PO PRN (10:00)
[2020-04-22] MEDS ORDERED: diphenhydrAMINE 50 MG/ML VIAL IV PRN (10:00)
[2020-04-22] MEDS ORDERED: HYDR-2761 PO (10:07)
[2020-04-22 10:51] VITALS: BP 112/69
--- NOTE | 2020-04-22 12:52 | OP ---
DATE OF SURGERY: 04/22/2020 PREOPERATIVE DIAGNOSES: Postmenopausal bleeding with endometrial thickening on sonogram. POSTOPERATIVE DIAGNOSES: Postmenopausal bleeding with endometrial thickening on sonogram with some evidence of scarring up inside the uterus with thicker white tissue near the fundus. PROCEDURE: Hysteroscopy, D and C with MyoSure fluid collection system. SURGEON: Racheal Mccann MD CENTRAL OFFICE FRAME WIRER: OR personnel ANESTHESIOLOGIST: Chaz Phan MD ANESTHESIA: General. ESTIMATED BLOOD LOSS: 10 mL. URINE OUTPUT: I believe, she said it was 150, but it was straight cath prior to procedure. IV FLUIDS: Please see anesthesia notes. SPECIMENS: Endometrial curettings. COMPLICATIONS: None. FINDINGS: Uterus that sounded to 8 cm with some thickening and white scarring near the fundus. No other abnormalities were seen inside the cavity. I did use the MyoSure Reach for, I believe was 3 minutes and 30 seconds cut time and then a deficit around 550-600. COMPLICATIONS: No complications. DESCRIPTION OF PROCEDURE: This patient was taken to the operating room where general anesthesia was placed. The patient was placed in dorsal lithotomy position in Melchor stirrups. The patient's vagina was prepped and draped in the normal sterile fashion. They did avoid Betadine and used, I think chlorhexidine on the outside and vinegar on the inside, as she has allergies. A straight cath urine was done prior to my arrival. Upon my arrival, a timeout was performed. Once everyone agreed on the patient, the site, the procedure, the antibiotics, the procedure was initiated. A weighted speculum was placed in the patient's vagina. A single-tooth tenaculum was used to grasp the anterior lip of the cervix. She did have some dark brown thicker mucus at the opening. She was easily dilated, the small Hegar, went it immediately. She was dilated up to a 7 sounded to 8 cm. The MyoSure scope had been primed and white balanced and was placed in with the above findings. The device was placed through the operating channel to remove any tissue and scarring that we saw to open up the cavity. Once this was done, the procedure was ended. It was removed. The tenaculum was removed. There was some bleeding from the left tenaculum site. Silver nitrate was used on. Once this was done, the procedure was ended. All sponge, lap and needle counts were correct x 2 by OR personnel. The patient was awakened from anesthesia and brought to recovery room in stable condition. RACHEAL MCCANN MD DR: BRENTON/becki JOB#: [id number] / [id number]
== END 2020-04-22 11:25 | disposition home or self-care (01) ==
LOC: SURG 06:46
PROVIDERS: ATTEND Obstetrics & Gynecology
DX: N95.0 Postmenopausal bleeding (principal); R93.89 Abnormal findings on diagnostic imaging of other specified body structures; I10 Essential (primary) hypertension; E78.00 Pure hypercholesterolemia, unspecified; J44.9 Chronic obstructive pulmonary disease, unspecified; K21.9 Gastro-esophageal reflux disease without esophagitis; M19.90 Unspecified osteoarthritis, unspecified site; E11.9 Type 2 diabetes mellitus without complications; F41.9 Anxiety disorder, unspecified; F32.9 Major depressive disorder, single episode, unspecified; Z79.899 Other long term (current) drug therapy; Z98.890 Other specified postprocedural states; Z72.89 Other problems related to lifestyle; Z88.0 Allergy status to penicillin; Z88.1 Allergy status to other antibiotic agents; Z88.2 Allergy status to sulfonamides; Z88.8 Allergy status to other drugs, medicaments and biological substances
CPT/HCPCS: 58558; 82962; J1100; J1650; J2250; J2370; J2405; J2704; J3010; J3490

== ENCOUNTER → 2020-06-15 | Outpatient (CLI) | payer BC ==
[~2020-06-15] MED LIST changes: -AZTREONAM IV Push 1 GM VIAL. IVP PRN; +BARIUM SULFATE 2.1% 450 ML SUSP PO ONE; -CLINDAMYCIN 900MG PREMIX 50 ML IV PRN; +HYDR-2761 PO; -HYDROmorphone 2 MG/ML VIAL IVP PRN; -IV RINGERS,LACTATED 1000ML 1,000 ML IV SCH; -MORPHINE SULFATE 2 MG/ML VIAL. IVP PRN; -PROCHLORPERAZINE 10 MG/2 ML VIAL. IVP PRN; -fentaNYL PF VIAL 100 MCG/2 ML VIAL IVP PRN
--- NOTE | 2020-06-15 13:10 | KCIC ---
PQRS Compliance Statement: One or more of the following individualized dose reduction techniques were utilized for this examinat ion: 1. Automated exposure control 2. Adjustment of the mA and/or kV according to patient size 3. Use of iterative reconstruction technique CT ABDOMEN+PELVIS W Clinical Indication: Reason: LLQ pain 8 months, nausea. / Spl. Instructions: / History: Comparison: CT abdomen and pelvis without contrast December 01, 2013. TECHNIQUE: Helical CT imaging of the abdomen and pelvis is performed after oral contrast. IV contrast is not administered. Findings: Mild atelectasis or scarring in the posterior right lower lobe. The cardiac size is normal. Calcified granulomas in the spleen. The liver, gallbladder, pancreas, adrenal glands, abdominal aorta , and kidneys are normal. No obvious abnormality of the stomach. There is a thick-walled duodenal diverticulum measuring approx imately 3.8 cm. There is no surrounding inflammation. There is no small bowel obstruction. The append ix is not identified, no secondary signs of appendicitis. There is no colon wall thickening. No abdom inal adenopathy or free fluid. There are at least 3 partially calcified uterine fibroids, largest easures 2.8 cm. Urinary bladder is normal. There is no pelvic free fluid. There is mild right convexity lumbar scoliosis. IMPRESSION: 1. There is a thick-walled duodenal diverticulum. There is no surrounding inflammation. Cannot exclu de that the wall thickening is due to inflammation/duodenitis. 2. There is otherwise no acute abdominal or pelvic abnormality. 3. Partially calcified uterine fibroids. Electronically signed by: Bernard Cardona MD (06/15/2020 1:08 PM) [id number]
== END ==
LOC: KCIC CT 09:00
PROVIDERS: ATTEND Family Medicine
DX: K57.10 Diverticulosis of small intestine without perforation or abscess without bleeding (principal); D25.9 Leiomyoma of uterus, unspecified; D73.89 Other diseases of spleen; M41.86 Other forms of scoliosis, lumbar region
CPT/HCPCS: 74176

== ENCOUNTER → 2021-06-10 | Outpatient (CLI) | payer BC ==
[~2021-06-10] MED LIST changes: -BARIUM SULFATE 2.1% 450 ML SUSP PO ONE
--- NOTE | 2021-06-10 18:34 | CARD ---
MR#: [id number] Date of Study: 06/10/2021 Ordering Physician: SARAH BARGER, Referring Physician: SARAH BARGER, Tech: Atif Flores [facility] APPROVED REPORT EXAM: Two-dimensional and M-mode echocardiogram with Doppler and color Doppler. Other Information Quality : FairHR: 74bpm Rhythm : NSR INDICATION Palpitations Murmur 2D DIMENSIONS Left Atrium(2D)3.5 (1.6-4.0cm)IVSd0.8 (0.7-1.1cm) Aortic Root(2D)3.0 (2.0-3.7cm)LVDd4.2 (3.9-5.9cm) LVOT Diameter1.9 (1.8-2.4cm)PWd0.8 (0.7-1.1cm) LA Ochyfz63 (18-58mL)LVDs2.9 (2.5-4.0cm) FS (%) 29.5 %SV44.0 ml Aortic Valve AoV Peak Dick.110.6cm/sAoV VTI23.6cm AO Peak GR.4.9mmHgLVOT Peak Dick.100.0cm/s LVOT VTI 20.15cmAO Mean GR.3mmHg OMER (VMAX)1.88gq8DNA (VTI)2.36cm2 Mitral Valve MV E Acvqjdel84.9cm/sMV DECEL [id number] MV A Qkwmxspm56.2cm/sMV [id number] E/A Ratio1.2MVA (PHT)3.30cm2 TDI E/Lateral E'6.0E/Medial E'8.5 Pulmonary Valve PV Peak Jhvxlpyw87.8cm/sPV Peak Grad.3mmHg Tricuspid Valve TR P. Enjuybbl758iu/sTR Peak Gr.18mmHg Pulmonary Vein S1 Qbljzxak76.5cm/sD2 Kifqtzrw47.7cm/s LEFT VENTRICLE The left ventricle is normal size. There is normal left ventricular wall thickness. The left ventricu lar systolic function is normal and the ejection fraction is within normal range. LV ejection fractio n is 50 to 55%. There is normal LV segmental wall motion. The left ventricular diastolic function and filling is normal for age. No left ventricle thrombus noted on this study. There is no ventricular s eptal defect visualized. There is no left ventricular aneurysm. There is no mass noted in the left ve ntricle. RIGHT VENTRICLE The right ventricle is normal size. There is normal right ventricular wall thickness. The right ventr icular systolic function is normal. ATRIA The left atrium size is normal. The right atrium size is normal. The interatrial septum is intact wit h no evidence for an atrial septal defect or patent foramen ovale as noted on 2-D or Doppler imaging. AORTIC VALVE The aortic valve is normal in structure and function. Doppler and Color Flow revealed no significant aortic regurgitation. There is no significant aortic valvular stenosis. There is no aortic valvular v egetation. MITRAL VALVE The mitral valve is normal in structure and function. There is no evidence of mitral valve prolapse. There is no mitral valve stenosis. Doppler and Color-flow revealed trace mitral regurgitation. TRICUSPID VALVE The tricuspid valve is normal in structure and function. Doppler and Color Flow revealed trace tricus pid regurgitation. There is no tricuspid valve prolapse or vegetation. There is no tricuspid valve st enosis. PULMONIC VALVE The pulmonary valve is normal in structure and function. Doppler and Color Flow revealed no pulmonic valvular regurgitation. There is no pulmonic valvular stenosis. GREAT VESSELS The aortic root is normal in size. The ascending aorta is normal in size. The pulmonary artery is nor mal. The IVC is normal in size and collapses >50% with inspiration. PERICARDIAL EFFUSION There is no evidence of significant pericardial effusion. Critical Notification Critical Value: No <Conclusion> The left ventricle is normal size. The left ventricular systolic function is normal and the ejection fraction is within normal range. LV ejection fraction is 50 to 55%. There is normal LV segmental wall motion. Doppler and Color Flow revealed no significant aortic regurgitation. There is no significant aortic valvular stenosis. Doppler and Color-flow revealed trace mitral regurgitation. Doppler and Color Flow revealed trace tricuspid regurgitation. Signed by : Sarah Barger MD Electronically Approved : 06/10/2021 18:33:59
== END ==
LOC: ECHO 14:07
PROVIDERS: ATTEND Internal Medicine Cardiovascular Disease
DX: R01.1 Cardiac murmur, unspecified (principal); R00.2 Palpitations
CPT/HCPCS: 93306; C8929

== ENCOUNTER 2021-07-21 16:42 | Inpatient (IN) | payer BC ==
[~2021-07-21] VITALS: Ht 167.6 cm; Wt 72.0 kg
[2021-07-21 17:08] LABS: BASO % 0 % (0-3); EOS % 0 % (0-3); HEMATOCRIT 40.8 % (36.0-47.0); HEMOGLOBIN 13.5 g/dL (12.0-15.5); LYMPH # 2.3 x10^3/uL (1.0-4.8); LYMPH % 16 % (24-48); MEAN CORPUSCULAR HEMOGLOBIN 30 pg (25-35); MEAN CORPUSCULAR HGB CONC 33 g/dL (31-37); MEAN CORPUSCULAR VOLUME 90 fL (79-100); MONO # 0.8 x10^3/uL (0.0-1.1); MONO % 5 % (0-9); NEUT # 11.8 x10^3/uL (1.8-7.7); NEUT % 79 % (31-73); PLATELET COUNT 297 x10^3/uL (140-400); RED BLOOD COUNT 4.56 x10^6/uL (3.50-5.40); RED CELL DISTRIBUTION WIDTH 13.8 % (11.5-14.5)
--- NOTE | 2021-07-21 17:24 | RAD ---
EXAM: Chest, single view. HISTORY: Chest pain. COMPARISON: 05/21/2019 FINDINGS: A frontal view of the chest is obtained. There is no infiltrate, pleural effusion or pneumo thorax. The heart is normal in size. IMPRESSION: No acute pulmonary finding. Electronically signed by: Angie De La Rosa MD (07/21/2021 5:22 PM) [id number]
[2021-07-21 17:27] LABS: CALCIUM 9.3 mg/dL (8.5-10.1); CREATININE 1.1 mg/dL (0.6-1.0); GFR 49.8; POTASSIUM 3.9 mmol/L (3.5-5.1)
[2021-07-21 17:33] LABS: ALBUMIN 3.8 g/dL (3.4-5.0); MAGNESIUM 2.3 mg/dL (1.8-2.4); TOTAL BILIRUBIN 0.7 mg/dL (0.2-1.0); TOTAL PROTEIN 7.5 g/dL (6.4-8.2)
[2021-07-21] MEDS ORDERED: ASPIRIN 325 MG TABLET PO ONE (18:00)
--- NOTE | 2021-07-21 18:06 | PHYS DOC ---
Past Medical History Past Medical History: Asthma, Bronchitis, High Cholesterol, Hypertension, Other Additional Past Medical Histor: PE, neuropathy, chronic back pain, pre diabetes Past Surgical History: Knee Replacement, Tonsillectomy, Other Additional Past Surgical Histo: IVC filter, hysteroscopy, knee scope, dilation and curretage Smoking Status: Current Every Day Smoker Alcohol Use: None Drug Use: None General Adult EDM: Chief Complaint: CHEST PAIN HPI: HPI: Patient is a 66 year old female who presents with last few weeks of not feeling well with increased blood pressure readings, intermittent headache to the base of her skull into the middle of her forehead, midsternal chest pain that is intermittent and will radiate to the left chest and she states is a pressure. Currently denying any type of headache. Chest pain she rates at a 5 out of 10. She states she is having more exertional shortness of breath when going up some stairs. She did see her primary care physician about this on July 13 and they did some blood work. She then went to her PAINTER HELPER on July 20 because she has been having dysmenorrhea and was on Provera cream. When she told her physician about her symptoms they took her off the Provera yesterday. She does have a history of tonsillectomy, PE with IVC filter, asthma, COPD, knee replacement, smoking, high cholesterol, hypertension, diabetes, heart murmur of which she had a echo on June 10 and neuropathy. Denies syncope, dizziness, numbness tingling, focal weakness, abdominal pain, nausea, vomiting, diarrhea, fever, vision change. Review of Systems: Review of Systems: Constitutional: Denies fever or chills. [] Eyes: Denies change in visual acuity. +blurred vision[] HENT: Denies nasal congestion or sore throat. [] Respiratory: Denies cough or + exertional shortness of breath. [] Cardiovascular: + chest pain or denies edema. [] GI: Denies abdominal pain, nausea, vomiting, bloody stools or diarrhea. [] : Denies dysuria. [] Musculoskeletal: Denies back pain or joint pain. [] Integument: Denies rash. [] Neurologic: + headache, denies focal weakness or sensory changes. [] Endocrine: Denies polyuria or polydipsia. [] Lymphatic: Denies swollen glands. [] Psychiatric: Denies depression or anxiety. [] Heart Score: C/O Chest Pain: Yes HEART Score for Chest Pain: HEART Score for Chest Pain Response (Comments) Value History Slighlty/Non-Suspicious 0 ECG Normal 0 Age >45 - < 65 1 Risk Factors >3 Risk Factors or Hx CAD 2 Troponin < Normal Limit 0 Total 3 Risk Factors: Risk Factors: DM, Current or recent (<one month) smoker, HTN, HLP, family history of CAD, obesity. Risk Scores: Score 0 - 3: 2.5% MACE over next 6 weeks - Discharge Home Score 4 - 6: 20.3% MACE over next 6 weeks - Admit for Clinical Observation Score 7 - 10: 72.7% MACE over next 6 weeks - Early Invasive Strategies Current Medications: Current Medications Medications (Trade) Dose Ordered Sig/Mitra Start Time Stop Time Status Last Admin Dose Admin Aspirin (Nenita Aspirin) 325 mg 1X ONCE 07/21/21 18:00 07/21/21 18:01 Allergies: Allergies: Allergies Coded Allergies Type Severity Reaction Last Updated Verified Iodinated Contrast Media Allergy Intermediate (allergy to shellfish) 07/21/21 Yes amoxicillin Allergy Intermediate Hives 07/21/21 Yes azithromycin Allergy Intermediate Rash 07/21/21 Yes duloxetine Allergy Intermediate 07/21/21 Yes formoterol Allergy Intermediate 07/21/21 Yes levofloxacin Allergy Intermediate rash 07/21/21 Yes losartan Allergy Intermediate Nausea 07/21/21 Yes mometasone furoate Allergy Intermediate 07/21/21 Yes nickel Allergy Intermediate Rash 07/21/21 Yes pregabalin Allergy Intermediate 07/21/21 Yes shellfish derived Allergy Intermediate 07/21/21 Yes roflumilast Allergy Unknown Nausea and Vomiting 07/21/21 Yes morphine Adverse Reaction Intermediate nausea and vomiting 07/21/21 Yes Physical Exam: PE: Constitutional: Well developed, well nourished, no acute distress, non-toxic appearance. [] HENT: Normocephalic, atraumatic, bilateral external ears normal, oropharynx moist, no oral exudates, nose normal. [] Eyes: PERRLA, EOMI, conjunctiva normal, no discharge. [] Neck: Normal range of motion, no tenderness, supple, no stridor. [] Cardiovascular:Heart rate regular rhythm, no murmur [] Lungs & Thorax: Bilateral breath sounds clear to auscultation [] Abdomen: Bowel sounds normal, soft, no tenderness, no masses, no pulsatile masses. [] Skin: Warm, dry, no erythema, no rash. [] Back: No tenderness, no CVA tenderness. [] Extremities: No tenderness, no cyanosis, no clubbing, ROM intact, no edema. [] Neurologic: Alert and oriented X 3, normal motor function, normal sensory fu nction, no focal deficits noted. [] Psychologic: Affect normal, judgement normal, mood normal. [] Normal physical exam Current Patient Data: Labs: Laboratory Tests Test 07/21/21 16:50 White Blood Count 15.0 x10^3/uL (4.0-11.0) H Red Blood Count 4.56 x10^6/uL (3.50-5.40) Hemoglobin 13.5 g/dL (12.0-15.5) Hematocrit 40.8 % (36.0-47.0) Mean Corpuscular Volume 90 fL (79-100) Mean Corpuscular Hemoglobin 30 pg (25-35) Mean Corpuscular Hemoglobin Concent 33 g/dL (31-37) Red Cell Distribution Width 13.8 % (11.5-14.5) Platelet Count 297 x10^3/uL (140-400) Neutrophils (%) (Auto) 79 % (31-73) H Lymphocytes (%) (Auto) 16 % (24-48) L Monocytes (%) (Auto) 5 % (0-9) Eosinophils (%) (Auto) 0 % (0-3) Basophils (%) (Auto) 0 % (0-3) Neutrophils # (Auto) 11.8 x10^3/uL (1.8-7.7) H Lymphocytes # (Auto) 2.3 x10^3/uL (1.0-4.8) Monocytes # (Auto) 0.8 x10^3/uL (0.0-1.1) Eosinophils # (Auto) 0.0 x10^3/uL (0.0-0.7) Basophils # (Auto) 0.0 x10^3/uL (0.0-0.2) Laboratory Tests 07/21/21 16:50 Vital Signs: Vital Signs Date Time Temp Pulse Resp B/P (MAP) Pulse Ox O2 Delivery O2 Flow Rate FiO2 07/21/21 16:45 98.2 78 20 155/82 (106) 96 Room Air 98.2 EKG: EK and read by Dr. Andino as sinus rhythm and no STEMI Radiology/Procedures: Radiology/Procedures: [] Impression: [address] [address] IMAGING REPORT Signed PATIENT: MAURIZIO ARRIAGA ACCOUNT: [id number] : 1955 LOCATION: ER AGE: 66 SEX: F EXAM STATUS: REG ER ORD. PHYSICIAN: ELY MCQUEEN APRN REASON: CHEST PAIN PROCEDURE: PORTABLE CHEST 1V EXAM: Chest, single view. HISTORY: Chest pain. COMPARISON: 05/21/2019 FINDINGS: A frontal view of the chest is obtained. There is no infiltrate, pleural effusion or pneumothorax. The heart is normal in size. IMPRESSION: No acute pulmonary finding. Electronically signed by: Angie Salazar MD (07/21/2021 5:22 PM) [id number] DICTATED and SIGNED BY: ANGIE SALAZAR MD DATE: 07/21/[address] [address] IMAGING REPORT Signed PATIENT: MAURIZIO ARRIAGA ACCOUNT: [id number] : 1955 LOCATION: ER AGE: 66 SEX: F EXAM STATUS: REG ER ORD. PHYSICIAN: ELY MCQUEEN APRN REASON: headache PROCEDURE: CT HEAD WO CONTRAST EXAM: CT Head without IV contrast CLINICAL HISTORY: Reason: headache / Spl. Instructions: / History: COMPARISON: None. TECHNIQUE: Routine CT of the head without contrast. PQRS compliance statement - One or more of the following individualized dose reduction techniques were utilized for this study: 1. Automated exposure control 2. Adjustment of the mA and/or kV according to patient size 3. Use of iterative reconstruction technique FINDINGS: There is no evidence of hemorrhage, mass or extra-axial fluid collection. Gonzalez-white differentiation is maintained with no evidence of edema. There is no mass effect or shift of the intracranial structures. The ventricles, basilar cisterns and cortical sulci are normal in size and configuration for the patients stated age. The cerebellum and brainstem are unremarkable. The calvarium demonstrates no evidence of fracture or focal lesion. There is normal aeration of the visualized paranasal sinuses and mastoid air cells. The visualized portions of the orbits are normal. IMPRESSION: No evidence for acute intracranial process. Electronically signed by: William Choudhary MD (07/21/2021 7:07 PM) [facility] DICTATED and SIGNED BY: WILLIAM CHOUDHARY MD DATE: 07/21/211904 Course & Med Decision Making: Course & Med Decision Making Pertinent Labs and Imaging studies reviewed. (See chart for details) See HPI. Alert and oriented x4. Ambulatory with a steady gait. Speaks in full clear sentences. No extremity edema. Abdomen soft and nontender. No nystagmus. PERRLA. Vital signs are within normal limits. EKG shows a sinus rhythm without STEMI. Chest pain is not reproducible with palpation pressure. Patient does not take any blood thinners. I did give her a full aspirin here in the ED. Chest x-ray shows no acute findings. Blood work is generally unremarkable. I spoke to Dr. Chairez for admission for chest pain and for a VQ scan in the morning due to the patient having chest pain, increased shortness of breath, recent hormone therapy, a history of PE and she is not currently on any kind of blood thinners. She cannot have a scan of the chest due to having a contrast dye allergy and shellfish allergy. Vital signs have remained within normal limits. [] Desire Disclaimer: Desire Disclaimer: This electronic medical record was generated, in whole or in part, using a voice recognition dictation system. Departure Departure Impression: Primary Impression: Chest pain Qualified Codes: R07.9 - Chest pain, unspecified Additional Impression: Shortness of breath Disposition: ADMITTED INPATIENT Admitting Physician: Margi Chairez Condition: STABLE Referrals: MARGI CHAIREZ MD (PCP) ELY MCQUEEN APRN July 21, 2021 18:06
--- NOTE | 2021-07-21 19:09 | RAD ---
EXAM: CT Head without IV contrast CLINICAL HISTORY: Reason: headache / Spl. Instructions: / History: COMPARISON: None. TECHNIQUE: Routine CT of the head without contrast. PQRS compliance statement - One or more of the following individualized dose reduction techniques wer e utilized for this study: 1. Automated exposure control 2. Adjustment of the mA and/or kV according to patient size 3. Use of iterative reconstruction technique FINDINGS: There is no evidence of hemorrhage, mass or extra-axial fluid collection. Gonzalez-white differentiation is maintained with no evidence of edema. There is no mass effect or shift of the intracranial structures. The ventricles, basilar cisterns and cortical sulci are normal in size and configuration for the emiliano ents stated age. The cerebellum and brainstem are unremarkable. The calvarium demonstrates no evidence of fracture or focal lesion. There is normal aeration of the visualized paranasal sinuses and mastoid air cells. The visualized portions of the orbits are normal. IMPRESSION: No evidence for acute intracranial process. Electronically signed by: William Valle MD (07/21/2021 7:07 PM) PAULIE
[2021-07-21] MEDS ORDERED: ALBUTEROL SULFATE 2.5 MG/3 ML NEBU. NEB ONE (19:45)
[2021-07-21] MEDS ORDERED: methylPREDNISolone SOD SUCC PF 125 MG/2 ML VIAL. IV ONE (19:45)
[2021-07-21 19:56] LABS: BACTERIA,URINE 0 /HPF (0-FEW); BARBITURATES NEG (NEG); BENZODIAZEPINES NEG (NEG); CANNABINOIDS NEG (NEG); COCAINE NEG (NEG); METHADONE NEG (NEG); OPIATES NEG (NEG); PHENCYCLIDINE NEG (NEG); RBC,URINE 0 /HPF (0-2); WBC,URINE OCC /HPF (0-4)
[2021-07-21 19:59] LABS: AMPHETAMINE/METHAMPHETAMINE NEG (NEG)
[2021-07-22] VITALS (7 sets, daily range): BP systolic 101–142; BP diastolic 66–73
[2021-07-22] MEDS ORDERED: METO10TA81 PO (01:43)
[2021-07-22] MEDS ORDERED: ALBU2.5V14 NEB (01:51)
[2021-07-22] MEDS ORDERED: AZEL205.2 NS (01:57)
[2021-07-22] MEDS ORDERED: FLUT16SP NS (02:01)
[2021-07-22] MEDS ORDERED: BUDE10.22 IH (02:02)
[2021-07-22] MEDS ORDERED: FLUC200T6 PO (02:05)
[2021-07-22] MEDS: ACETAMINOPHEN 325 MG TABLET. PO PRN ×2 (02:33→14:21)
--- NOTE | 2021-07-22 09:28 | NUR ---
Called and spoke with Dr. Armendariz Ordered to restart home medications.
[2021-07-22] MEDS ORDERED: ONDANSETRON ODT 4 MG TAB.RAPDIS. PO PRN (09:30)
[2021-07-22] MEDS ORDERED: ACETAMINOPHEN 325 MG TABLET. PO PRN (09:30)
[2021-07-22] MEDS ORDERED: NON FORMULARY ITEM (Albuterol Sulfate (Albuterol Sulfate Conc Neb Soln) 2.5 MG) NEB PRN (09:30)
[2021-07-22] MEDS ORDERED: NON FORMULARY ITEM (Levalbuterol Tartrate (Xopenex Hfa) 2 PUFF) IH PRN (09:30)
[2021-07-22] MEDS ORDERED: ZOLPIDEM 5 MG TABLET. PO PRN (09:45)
[2021-07-22] MEDS ORDERED: ALBUTEROL SULFATE 2.5 MG/3 ML NEBU. NEB PRN (09:45)
--- NOTE | 2021-07-22 09:45 | HP ---
DATE OF SERVICE: 07/22/2021 ADMIT DATE: 07/21/2021 CHIEF COMPLAINT AND HISTORY OF PRESENT ILLNESS: This 66-year-old female is well known to me from followup in the office. The patient has not been feeling well for the last few weeks. She has been having symptomatology of chest pressure with radiation to the neck and the head. She feels like she becomes flushed with this and may be somewhat tremulous. She also admits to blood pressure elevation with the same. It lasts up to 3-4 hours at a time. She is seeing her demolition crane operator day prior to admission who thought it might be related somehow to the addition of Provera to her regimen for bleeding fibroids, this was stopped. She did have a recent outpatient cardiac workup that was fairly unremarkable. She so far has had negative enzymes, cardiac enzymes from admission and had a head CT and chest x-ray showing no acute changes. SHE HAS AN ALLERGY OF IODINATED CONTRAST and thus a V/Q scan is ordered for this morning, but symptomatology does not sound anything like a pulmonary embolus and I am going to cancel this. However, we will have GI as well as Cardiology take a look and see if they are able to sort some of this out. PAST MEDICAL HISTORY: Remarkable for asthma, hyperlipidemia, hypertension, prior pulmonary embolism, chronic back pain, well controlled diabetes Neuropathy. PAST SURGICAL HISTORY: Remarkable for knee replacement, tonsillectomy, IVC filter, which is broken loose and is no longer functional. Hysteroscopy, D and C. MEDICATIONS: Brought with the patient, listed on the computer have been addressed. ALLERGIES: SHE IS ALLERGIC TO IODINATED CONTRAST, AMOXICILLIN, ZITHROMAX, CYMBALTA, FORMOTEROL, LEVAQUIN, LOSARTAN, MOMETASONE, MORPHINE, NICKEL, LYRICA, ROFLUMAT MAST AND SHELLFISH DERIVATIVES. SOCIAL HISTORY: She is an everyday smoker, does not abuse alcohol or drugs. She is retired. FAMILY HISTORY: Noncontributory. REVIEW OF SYSTEMS: As mentioned above. PHYSICAL EXAMINATION: GENERAL: She is a well-developed, well-nourished female in no acute distress, lying in bed. VITAL SIGNS: Stable. She is afebrile. HEAD, EYES, EARS, NOSE AND THROAT: Unremarkable. NECK: Supple, without adenopathy or thyromegaly. CHEST: Clear to auscultation and percussion. HEART: Regular rate and rhythm without S3, S4 or murmur. ABDOMEN: Soft, nontender, without hepatosplenomegaly or masses. EXTREMITIES: Without cyanosis, clubbing, edema. NEUROLOGIC: She is intact. LABORATORY DATA: Initial laboratory is remarkable for a white count of 15,000 with a left shift. CMP is remarkable for an elevated blood sugar. Again, troponins are negative to date x 3. Toxicology screen is negative. Urinalysis is negative. ASSESSMENT: Chest pain, but atypical story, not really consistent with anything. Pheochromocytoma raises my mind what the blood pressure and flushing associated with this. PLAN: GI and Cardiology evaluation will consider a 24-hour urine for pheochromocytoma and carcinoid of nothing else is apparent by their evaluation. ROSEMARY/MAINOR DR: Robbie TID: [id number]
--- NOTE | 2021-07-22 10:10 | PDOC2 ---
GI CONSULT Date of Service: DATE: 07/22/21 TIME: 10:10 Reason For Consult: chest pain HPI: HPI: 66 y/o female w/ central chest pressure (pretty constant) associated w/ ear fullness, fluctuating blood pressure, feeling like she might pass out, chest and neck redness, and palpitations. 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 GI-springer has h/o GERD on Protonix BID + Reglan QHS. Additional h/o nausea attri buted to fibroids. Sometimes feels bloated. No hematochezia, melena, diarrhea, constipation, or weight loss. Appetite stable. Sometimes "hard to swallow mucous." No previous EGD or colonoscopy. Does recall previous UGI that showed reflux and hiatal hernia. No GB, liver, pancreas, or PUD history. Past imaging w/ thick-walled duodenal diverticulum. D/o DM, says last A1c 6.8, couldn't tolerate metformin. PMH: PMH: HTN, HLD, PE, DVT, asthma, CTS, anxiety, back pain, OA, UTI, DM, uterine fibroids right knee surgery, ICV filter/dislodgement, hysteroscopy, D&C FH: Family History: Cancer (liver and bone - father) Social History: Smoke: No ALCOHOL: none ROS: GEN: Denies fevers, chills, sweats HEENT: "ear fullness" CV: +chest pressure +palpitations RESP: Denies shortness of air, cough GI: Per HPI : Denies hematuria, dysuria ENDO: Denies weight changes NEURO: +dizziness MSK: Denies weakness, joint pain/swelling SKIN: "neck redness" Vitals: Vitals: Vital Signs Date Time Temp Pulse Resp B/P (MAP) Pulse Ox O2 Delivery O2 Flow Rate FiO2 07/22/21 07:00 98.5 72 18 117/72 (87) 97 Room Air 98.5 Labs: Labs: Laboratory Tests Test 07/21/21 16:50 07/21/21 19:31 07/21/21 19:55 07/21/21 21:56 White Blood Count 15.0 x10^3/uL (4.0-11.0) Red Blood Count 4.56 x10^6/uL (3.50-5.40) Hemoglobin 13.5 g/dL (12.0-15.5) Hematocrit 40.8 % (36.0-47.0) Mean Corpuscular Volume 90 fL (79-100) Mean Corpuscular Hemoglobin 30 pg (25-35) Mean Corpuscular Hemoglobin Concent 33 g/dL (31-37) Red Cell Distribution Width 13.8 % (11.5-14.5) Platelet Count 297 x10^3/uL (140-400) Neutrophils (%) (Auto) 79 % (31-73) Lymphocytes (%) (Auto) 16 % (24-48) Monocytes (%) (Auto) 5 % (0-9) Eosinophils (%) (Auto) 0 % (0-3) Basophils (%) (Auto) 0 % (0-3) Neutrophils # (Auto) 11.8 x10^3/uL (1.8-7.7) Lymphocytes # (Auto) 2.3 x10^3/uL (1.0-4.8) Monocytes # (Auto) 0.8 x10^3/uL (0.0-1.1) Eosinophils # (Auto) 0.0 x10^3/uL (0.0-0.7) Basophils # (Auto) 0.0 x10^3/uL (0.0-0.2) Sodium Level 134 mmol/L (136-145) Potassium Level 3.9 mmol/L (3.5-5.1) Chloride Level 97 mmol/L (98-107) Carbon Dioxide Level 25 mmol/L (21-32) Anion Gap 12 (6-14) Blood Urea Nitrogen 22 mg/dL (7-20) Creatinine 1.1 mg/dL (0.6-1.0) Estimated GFR (Cockcroft-Gault) 49.8 BUN/Creatinine Ratio 20 (6-20) Glucose Level 232 mg/dL (70-99) Calcium Level 9.3 mg/dL (8.5-10.1) Magnesium Level 2.3 mg/dL (1.8-2.4) Total Bilirubin 0.7 mg/dL (0.2-1.0) Aspartate Amino Transf (AST/SGOT) 14 U/L (15-37) Alanine Aminotransferase (ALT/SGPT) 21 U/L (14-59) Alkaline Phosphatase 82 U/L (46-116) Troponin I High Sensitivity 4 ng/L (4-50) 5 ng/L (4-50) MS-Rdj-C-Type Natriuretic Peptide 163 pg/mL (0-124) Total Protein 7.5 g/dL (6.4-8.2) Albumin 3.8 g/dL (3.4-5.0) Albumin/Globulin Ratio 1.0 (1.0-1.7) Lipase 172 U/L (73-393) Urine Collection Type Unknown Urine Color (Auto) Colorless Urine Turbidity Clear Urine pH (Auto) 6.0 (<5.0-8.0) Urine Specific [place] 1.006 (1.000-1.030) Urine Protein (Auto) Negative mg/dL (Negative) Urine Glucose (Auto)(UA) Negative mg/dL (Negative) Urine Ketones (Auto) Negative mg/dL (Negative) Urine Blood (Auto) Negative (Negative) Urine Nitrite Negative (Negative) Urine Bilirubin (Auto) Negative (Negative) Urine Urobilinogen (Auto) Normal mg/dL (Normal) Urine Leukocyte Esterase (Auto) Negative (Negative) Urine RBC 0 /HPF (0-2) Urine WBC Occ /HPF (0-4) Urine Squamous Epithelial Cells Few /LPF Urine Bacteria 0 /HPF (0-FEW) Urine Opiates Screen Neg (NEG) Urine Methadone Screen Neg (NEG) Urine Barbiturates Neg (NEG) Urine Phencyclidine Screen Neg (NEG) Urine Amphetamine/Methamphetamine Neg (NEG) Urine Benzodiazepines Screen Neg (NEG) Urine Cocaine Screen Neg (NEG) Urine Cannabinoids Screen Neg (NEG) Urine Ethyl Alcohol Neg (NEG) Coronavirus (COVID-19)(PCR) Not detected (NOT DETECTD) Test 07/22/21 04:00 Troponin I High Sensitivity 6 ng/L (4-50) Allergies: Coded Allergies: Iodinated Contrast Media (Verified Allergy, Intermediate, (allergy to shellfish), 07/21/21) short of breath, throat closes, hives amoxicillin (Verified Allergy, Intermediate, Hives, 07/21/21) azithromycin (Verified Allergy, Intermediate, Rash, 07/21/21) duloxetine (Verified Allergy, Intermediate, 07/21/21) couldn't tolerate levofloxacin (Verified Allergy, Intermediate, rash, 07/21/21) mometasone furoate (Verified Allergy, Intermediate, 07/21/21) nickel (Verified Allergy, Intermediate, Rash, 07/21/21) pregabalin (Verified Allergy, Intermediate, 07/21/21) shellfish derived (Verified Allergy, Intermediate, 07/21/21) formoterol (Verified Adverse Reaction, Intermediate, 07/22/21) sore throat losartan (Verified Adverse Reaction, Intermediate, Nausea, 07/22/21) and headache morphine (Verified Adverse Reaction, Intermediate, nausea and vomiting, 07/21/21) roflumilast (Verified Adverse Reaction, Unknown, Nausea and Vomiting, 07/22/21) Medications: Current Medications Medications (Trade) Dose Ordered Sig/Mitra Route PRN Reason Start Time Stop Time Status Last Admin Dose Admin Aspirin (Nenita Aspirin) 325 mg 1X ONCE PO 07/21/21 18:00 07/21/21 18:01 DC 07/21/21 18:00 Albuterol Sulfate (Ventolin Neb Soln) 5 mg 1X ONCE NEB 07/21/21 19:45 07/21/21 19:46 DC 07/21/21 19:58 Methylprednisolone Sodium Succinate (SOLU-Medrol 125MG VIAL) 80 mg 1X ONCE IV 07/21/21 19:45 07/21/21 19:46 DC 07/21/21 19:56 Acetaminophen (Tylenol) 650 mg PRN Q4HRS PRN PO FEVER > 100.3'F 07/21/21 20:45 07/22/21 20:44 07/22/21 02:33 Imaging: Imaging: Head CT IMPRESSION: No evidence for acute intracranial process. CXR IMPRESSION: No acute pulmonary finding. PE: GEN: NAD HEENT: Atraumatic, PERRL LUNGS: CTAB HEART: RRR ABD: NABS, S/ND/NT EXTREMITY: No edema SKIN: No rashes, no jaundice NEURO/PSYCH: A & O 3 A/P: A/P: Chest pressure, palpitations, weakness Leukocytosis H/o GERD and nausea CRC screen - none H/o DM and uterine fibroids COVID negative -- Not clear all these symptoms are GI-related, though does seem to have h/o GERD, also wonder about some delayed gastric emptying w/ DM history. Continue PPI +/- Reglan. Plan for EGD and colonoscopy as outpt. If unrevealing, consider GES and/or GB imaging. DAINA CASTRO July 22, 2021 10:10
[2021-07-22] MEDS: FLUTICASONE 50MCG/NASAL SPRAY 16GM BOTTLE. NS SCH (11:41)
[2021-07-22] MEDS: AZELASTINE NASAL SPRAY 30ML BOTTLE. NS SCH ×2 (11:42→21:09)
[2021-07-22] MEDS: PANTOPRAZOLE 40 MG TABLET.DR. PO SCH ×2 (11:43→17:09)
[2021-07-22] MEDS: METOPROLOL TART IMMED RELEASE 50 MG TABLET. PO SCH ×2 (11:43→21:14)
[2021-07-22] MEDS: POTASSIUM CHLORIDE 20 MEQ TABLET.ER. PO SCH ×2 (11:43→17:08)
[2021-07-22] MEDS: GABAPENTIN 100 MG CAPSULE. PO SCH ×3 (11:43→21:14)
[2021-07-22] MEDS: METOCLOPRAMIDE 10 MG TABLET. PO SCH ×2 (11:44→17:09)
[2021-07-22] MEDS: hydroCHLOROthiazide 25 MG TABLET PO SCH (11:44)
--- NOTE | 2021-07-22 11:54 | NUR ---
SS following for discharge planning. SS reviewed pt chart and discussed with pt RN. Pt is currently on room air. Cardiology and GI following. SS will continue to follow for discharge planning.
[2021-07-22] MEDS: ALBUTEROL SULFATE 2.5 MG/3 ML NEBU. NEB SCH ×3 (12:00→21:13)
[2021-07-22] MEDS: BUDESONIDE 0.5 MG/2 ML NEBU. NEB SCH ×2 (12:00→21:13)
--- NOTE | 2021-07-22 12:24 | PDOC2 ---
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 BOTELLO described as throbbing bilateral with associated fullness to both ears. No nausea vomiting, no vertigo. No fever or chills. Denies any nasal congestion or heartburn and does take allergy meds and PPI. No SOA but does have palpitations intermittent.Her chest pain is pressure midchest but no diaphoresis. No recent falls or injury. Her last stress test was in 2018. Reports that her BP in the afternoon goes up to as high as 150s/90s. PAST MEDICAL HISTORY Past Medical History Cardiovascular: HTN, Hyperlipidemia Pulmonary: Asthma, Pulmonary embolus (with DVT), COPD CENTRAL NERVOUS SYSTEM: Carpal Tunnel Syndrome, Peripheral neuropathy GI: GERD Psych: Anxiety, depression Musculoskeletal: low back pain, Osteoarthritis, fibromyalgia Renal/: UTI Endocrine: Diabetes (2) PAST SURGICAL HISTORY Past Surgical History Total knee replacement (right), Other (IVC filter placement and removal), right carpal tunnel release, lower back surgery FAMILY HISTORY Family History: Heart Disease SOCIAL HISTORY Smoke: No ALCOHOL: none Drugs: None Lives: with Family CURRENT MEDICATIONS CURRENT MEDICATIONS Current Medications Medications (Trade) Dose Ordered Sig/Mitra Route PRN Reason Start Time Stop Time Status Last Admin Dose Admin Aspirin (Nenita Aspirin) 325 mg 1X ONCE PO 07/21/21 18:00 07/21/21 18:01 DC 07/21/21 18:00 Albuterol Sulfate (Ventolin Neb Soln) 5 mg 1X ONCE NEB 07/21/21 19:45 07/21/21 19:46 DC 07/21/21 19:58 Methylprednisolone Sodium Succinate (SOLU-Medrol 125MG VIAL) 80 mg 1X ONCE IV 07/21/21 19:45 07/21/21 19:46 DC 07/21/21 19:56 Acetaminophen (Tylenol) 650 mg PRN Q4HRS PRN PO FEVER > 100.3'F 07/21/21 20:45 07/22/21 20:44 07/22/21 02:33 Azelastine HCl (Astelin) 2 spray BID NS 07/22/21 10:00 07/22/21 11:42 Fluticasone Propionate (Flonase) 2 spray DAILY NS 07/22/21 10:00 07/22/21 11:41 Gabapentin (Neurontin) 100 mg TID PO 07/22/21 10:00 07/22/21 11:43 Hydrochlorothiazide (Hydrodiuril) 25 mg DAILY PO 07/22/21 10:00 07/22/21 11:44 Metoclopramide HCl (Reglan) 10 mg TIDAC PO 07/22/21 11:30 07/22/21 11:44 Potassium Chloride (Klor-Con) 20 meq TIDWMEALS PO 07/22/21 12:00 07/22/21 11:43 Guaifenesin (Mucinex) 1,200 mg BID PO 07/22/21 10:00 07/22/21 11:43 Metoprolol Tartrate (Lopressor) 50 mg BID PO 07/22/21 10:00 07/22/21 11:43 Pantoprazole Sodium (Protonix) 40 mg BIDAC PO 07/22/21 10:00 07/22/21 11:43 ALLERGIES ALLERGIES: Coded Allergies: Iodinated Contrast Media (Verified Allergy, Intermediate, (allergy to shellfish), 07/21/21) short of breath, throat closes, hives amoxicillin (Verified Allergy, Intermediate, Hives, 07/21/21) azithromycin (Verified Allergy, Intermediate, Rash, 07/21/21) duloxetine (Verified Allergy, Intermediate, 07/21/21) couldn't tolerate levofloxacin (Verified Allergy, Intermediate, rash, 07/21/21) mometasone furoate (Verified Allergy, Intermediate, 07/21/21) nickel (Verified Allergy, Intermediate, Rash, 07/21/21) pregabalin (Verified Allergy, Intermediate, 07/21/21) shellfish derived (Verified Allergy, Intermediate, 07/21/21) formoterol (Verified Adverse Reaction, Intermediate, 07/22/21) sore throat losartan (Verified Adverse Reaction, Intermediate, Nausea, 07/22/21) and headache morphine (Verified Adverse Reaction, Intermediate, nausea and vomiting, 07/21/21) roflumilast (Verified Adverse Reaction, Unknown, Nausea and Vomiting, 07/22/21) ROS Review of System 14 point ROS evaluated with pertinent positives noted per HPI PHYSICAL EXAM General: Alert, Oriented X3, Cooperative, No acute distress HEENT: Atraumatic, Mucous membr. moist/pink Lungs: Clear to auscultation, Normal air movement Heart: Regular rate (SR), Normal S1, Normal S2, No murmurs Abdomen: Soft, No tenderness Extremities: No cyanosis, No edema Skin: No breakdown, No significant lesion Neuro: Normal speech, Sensation intact Psych/Mental Status: Mental status NL, Mood NL MUSCULOSKELETAL: Osteoarthritic changes both hands VITALS/I&O VITALS/I&O: Vital Signs Date Time Temp Pulse Resp B/P (MAP) Pulse Ox O2 Delivery O2 Flow Rate FiO2 07/22/21 11:43 74 118/73 07/22/21 10:45 98.3 18 96 Room Air 98.3 I & O 07/21/21 07/21/21 07/22/21 15:00 23:00 07:00 Intake Total 300 ml Output Total 1100 ml Balance -800 ml LABS Lab: Laboratory Tests Test 07/21/21 16:50 07/21/21 19:31 07/21/21 19:55 07/21/21 21:56 White Blood Count 15.0 x10^3/uL (4.0-11.0) H Red Blood Count 4.56 x10^6/uL (3.50-5.40) Hemoglobin 13.5 g/dL (12.0-15.5) Hematocrit 40.8 % (36.0-47.0) Mean Corpuscular Volume 90 fL (79-100) Mean Corpuscular Hemoglobin 30 pg (25-35) Mean Corpuscular Hemoglobin Concent 33 g/dL (31-37) Red Cell Distribution Width 13.8 % (11.5-14.5) Platelet Count 297 x10^3/uL (140-400) Neutrophils (%) (Auto) 79 % (31-73) H Lymphocytes (%) (Auto) 16 % (24-48) L Monocytes (%) (Auto) 5 % (0-9) Eosinophils (%) (Auto) 0 % (0-3) Basophils (%) (Auto) 0 % (0-3) Neutrophils # (Auto) 11.8 x10^3/uL (1.8-7.7) H Lymphocytes # (Auto) 2.3 x10^3/uL (1.0-4.8) Monocytes # (Auto) 0.8 x10^3/uL (0.0-1.1) Eosinophils # (Auto) 0.0 x10^3/uL (0.0-0.7) Basophils # (Auto) 0.0 x10^3/uL (0.0-0.2) Sodium Level 134 mmol/L (136-145) L Potassium Level 3.9 mmol/L (3.5-5.1) Chloride Level 97 mmol/L (98-107) L Carbon Dioxide Level 25 mmol/L (21-32) Anion Gap 12 (6-14) Blood Urea Nitrogen 22 mg/dL (7-20) H Creatinine 1.1 mg/dL (0.6-1.0) H Estimated GFR (Cockcroft-Gault) 49.8 BUN/Creatinine Ratio 20 (6-20) Glucose Level 232 mg/dL (70-99) H Calcium Level 9.3 mg/dL (8.5-10.1) Magnesium Level 2.3 mg/dL (1.8-2.4) Total Bilirubin 0.7 mg/dL (0.2-1.0) Aspartate Amino Transferase (AST) 14 U/L (15-37) L Alanine Aminotransferase (ALT) 21 U/L (14-59) Alkaline Phosphatase 82 U/L (46-116) Troponin I High Sensitivity 4 ng/L (4-50) 5 ng/L (4-50) WM-Xdv-Y-Type Natriuretic Peptide 163 pg/mL (0-124) H Total Protein 7.5 g/dL (6.4-8.2) Albumin 3.8 g/dL (3.4-5.0) Albumin/Globulin Ratio 1.0 (1.0-1.7) Lipase 172 U/L (73-393) Urine Collection Type Unknown Urine Color (Auto) Colorless Urine Turbidity Clear Urine pH (Auto) 6.0 (<5.0-8.0) Urine Specific [place] 1.006 (1.000-1.030) Urine Protein (Auto) Negative mg/dL (Negative) Urine Glucose (Auto)(UA) Negative mg/dL (Negative) Urine Ketones (Auto) Negative mg/dL (Negative) Urine Blood (Auto) Negative (Negative) Urine Nitrite Negative (Negative) Urine Bilirubin (Auto) Negative (Negative) Urine Urobilinogen (Auto) Normal mg/dL (Normal) Urine Leukocyte Esterase (Auto) Negative (Negative) Urine RBC 0 /HPF (0-2) Urine WBC Occ /HPF (0-4) Urine Squamous Epithelial Cells Few /LPF Urine Bacteria 0 /HPF (0-FEW) Urine Opiates Screen Neg (NEG) Urine Methadone Screen Neg (NEG) Urine Barbiturates Neg (NEG) Urine Phencyclidine Screen Neg (NEG) Urine Amphetamine/Methamphetamine Neg (NEG) Urine Benzodiazepines Screen Neg (NEG) Urine Cocaine Screen Neg (NEG) Urine Cannabinoids Screen Neg (NEG) Urine Ethyl Alcohol Neg (NEG) SARS-CoV-2 (PCR) Not detected (NOT DETECTD) Test 07/22/21 04:00 Troponin I High Sensitivity 6 ng/L (4-50) Laboratory Tests 07/21/21 16:50 Laboratory Tests 07/21/21 16:50 ECHOCARDIOGRAM ECHOCARDIOGRAM <Conclusion> The left ventricle is normal size. The left ventricular systolic function is normal and the ejection fraction is within normal range. LV ejection fraction is 50 to 55%. There is normal LV segmental wall motion. Doppler and Color Flow revealed no significant aortic regurgitation. There is no significant aortic valvular stenosis. Doppler and Color-flow revealed trace mitral regurgitation. Doppler and Color Flow revealed trace tricuspid regurgitation. DATE: 06/10/21 170 STRESS TEST STRESS TEST Conclusion 1. No evidence of EKG changes with stress testing. 2. Normal perfusion at stress/rest. 3. Low risk study. 4. EF > 60%. DATE: 09/13/17 1024 ASSESSMENT/PLAN ASSESSMENT/PLAN 1. Chest pain: doubt ACS, trops nml. Recent TTE unremarkable 2. HTN: controlled 3. HLP 4. DM2 5. Hx of PE and IVC filter removal 6. Anxiety 7. Tension BOTELLO: per PCP 8. Hx of PSVT: maintaining SR Recommendations 1. Continue secondary prevention measures Continue home PPI 2. Will arrange for outpt MPI 3. HBPM bid for 2 weeks and to call our office if above parameter for further adjustment of her BP regimen 4. Continue metoprolol for SVT control SARAH BOLES MD 07/22/218: CARDIAC CONSULT ASSESSMENT/PLAN ASSESSMENT/PLAN Patient seen and examined She is feeling mildly better. I agree with our nurse practitioners assessment and plan. Chest pain: Resolved. trops nml. Recent TTE unremarkable. Outpatient MPI and follow-up. HTN: controlled HLP DM2 Hx of PE and IVC filter removal Tension BOTELLO: per PCP Hx of PSVT: maintaining SR. continue metoprolol. LUDWIN ABURTO APRN July 22, 2021 12:24 SARAH BOLES MD July 22, 2021 17:08
[2021-07-22] MEDS ORDERED: CETIRIZINE HCL 10 MG TABLET. PO SCH (18:00)
[2021-07-22] MEDS ORDERED: SMZ/TMP 800/160MG TABLET. PO SCH (21:00)
[2021-07-22] MEDS ORDERED: ATORVASTATIN CALCIUM 20 MG TABLET PO SCH (21:00)
[2021-07-22] MEDS ORDERED: ZOLPIDEM 5 MG TABLET. PO SCH (21:00)
[2021-07-22] MEDS ORDERED: NON FORMULARY ITEM (Budesonide/Formoterol Fumarate (Symbicort 80-4.5 Mcg Inhaler) 2 PUFF) IH SCH (21:00)
[2021-07-22] MEDS ORDERED: MONTELUKAST SODIUM 10 MG TABLET. PO SCH (21:00)
[2021-07-22] MEDS ORDERED: AMITRIPTYLINE HCL 10 MG TABLET. PO SCH (21:00)
[2021-07-22] MEDS ORDERED: AZELASTINE HCL NS SCH (21:00)
--- NOTE | 2021-07-23 06:19 | EKG ---
[facility] [address] [place] [address] Test Date: 2021-07-21 Test Time: 16:50:44 Pat Name: MAURIZIO ARRIAGA Department: Room: 2 Gender: F Slotter Operator: : [id number] Requested By: ELY MCQUEEN Order Number: [id number] Reading MD: Segun Ramos MD Measurements Intervals [place] Rate: 81 P: 58 WV: 136 QRS: 13 QRSD: 76 T: 31 QT: 368 QTc: 433 Interpretive Statements SINUS RHYTHM Electronically Signed On 07-23-2021 21:25:59 CDT by Segnu Ramos MD
[2021-07-23 07:00] VITALS: BP 105/55
[2021-07-23] MEDS: BUDESONIDE 0.5 MG/2 ML NEBU. NEB SCH (08:05)
[2021-07-23] MEDS: ALBUTEROL SULFATE 2.5 MG/3 ML NEBU. NEB SCH ×2 (08:05→11:40)
[2021-07-23] MEDS: FLUTICASONE 50MCG/NASAL SPRAY 16GM BOTTLE. NS SCH (08:56)
[2021-07-23] MEDS: POTASSIUM CHLORIDE 20 MEQ TABLET.ER. PO SCH ×2 (08:57→11:55)
[2021-07-23] MEDS: METOCLOPRAMIDE 10 MG TABLET. PO SCH ×2 (08:57→11:55)
[2021-07-23] MEDS: AZELASTINE NASAL SPRAY 30ML BOTTLE. NS SCH (08:57)
[2021-07-23] MEDS: METOPROLOL TART IMMED RELEASE 50 MG TABLET. PO SCH (08:58)
[2021-07-23] MEDS: PANTOPRAZOLE 40 MG TABLET.DR. PO SCH (08:58)
[2021-07-23] MEDS: hydroCHLOROthiazide 25 MG TABLET PO SCH (08:58)
[2021-07-23] MEDS: GABAPENTIN 100 MG CAPSULE. PO SCH ×2 (08:58→14:12)
[2021-07-23] MEDS ORDERED: FLUCONAZOLE 200 MG PO SCH (09:00)
--- NOTE | 2021-07-23 10:38 | PDOC ---
Provider Note Date of Service: DATE: 07/23/21 TIME: 10:37 Provider Note [id number] Justifications for Admission Other Justification LATANYA WHELAN MD July 23, 2021 10:38
[2021-07-23 10:40] VITALS: BP_SYST 119; BP_SYST 125; BP_DIAS 77; BP_DIAS 78
[2021-07-23 11:00] VITALS: BP 119/77
--- NOTE | 2021-07-23 13:00 | NUR ---
Discharge instructions reviewed with patient, patient voices understanding and denies questions or concerns at this time. IV removed from LAC with cannula intact, et equipment monitor phototypesetting removed. Patient escorted to main entrance of hospital via wheelchair by unit staff, et assisted into private vehicle driven by daughter. All belongings taken with patient at time of discharge.
--- NOTE | 2021-07-23 17:02 | DS ---
DATE OF DISCHARGE: 07/23/2021 HOSPITAL SUMMARY: This is a 66-year-old white female, Dr. Chairez, came in with chest pain, fatigue and mild shortness of breath and her blood pressure was fairly high with some headaches. Her physical exam was unremarkable. Chemistry profile, CBC, urine drug screen and serology were all unremarkable as well as the regular urinalysis. CT of the head was normal as was a chest x-ray. Metoprolol was added for palpitations and blood pressure elevation. Her blood pressure has come down well with no further symptoms at this point. She is comfortable to be followed as an outpatient at this point. FINAL DIAGNOSIS: Chest pain, etiology undetermined. OPERATIONS, PROCEDURES, AND COMPLICATIONS: None. CONSULTATION: Dr. Carlin group. DISPOSITION: Home meds remain the same. Added metoprolol at uncertain dose at this point. Activity as tolerated. Low salt intake and I will see her as an outpatient to arrange MPI or further testing as indicated based on the response. EDDI/KEMAR/MOH DR: EDDI/becki TID: [id number]
--- NOTE | 2021-07-23 22:05 | PDOC ---
CARDIOLOGY PROGRESS NOTE SUBJECTIVE: No acute events overnight. patient still is wondering why she is having the headaches. Unclear if there are any hormonal issues. She denies any chest pain. OBJECTIVE: Vital Signs/I&O: Vital Signs Date Time Temp Pulse Resp B/P (MAP) Pulse Ox O2 Delivery O2 Flow Rate FiO2 07/23/21 11:41 Room Air 07/23/21 11:00 97.2 78 18 119/77 (91) 94 97.2 I & O 0 07/22/21 07/22/21 07/23/21 15:00 23:00 07:00 Intake Total 360 ml 260 ml Output Total 220 ml 400 ml 150 ml Balance 140 ml -140 ml -150 ml Objective: GEN.: No apparent distress. Alert and oriented. HEENT: Head is normocephalic, atraumatic NECK: Supple. LUNGS: Clear to auscultation. HEART: RRR, S1, S2 present. Peripheral pulses intact ABDOMEN: Soft, nontender. Positive bowel sounds. EXTREMITIES: Without any cyanosis. NEUROLOGIC: Normal speech, normal tone PSYCHIATRIC: Normal affect, normal mood. SKIN: No ulcerations ASSESSMENT: 1. Non-cardiac chest pain 2. Vertiginous syndrome 3. Headaches. 4. HTN PLAN: 1. Patient's ekg, enzymes, CXR and exam are unremarkable. No further inpt testing necessary 2. I had a long discussion with patient Supportive care. Justicifation of Admission Dx: Justifications for Admission: Justification of Admission Dx: N/A SUHAS CHRISTENSEN MD July 23, 2021 22:05
== END 2021-07-23 13:00 | disposition home or self-care (01) | DRG 313 ==
LOC: ER 16:42 → 6 SOUTH 19:58
PROVIDERS: ADMIT Family Medicine; ATTEND Family Medicine
DX: R07.89 Other chest pain (principal); D25.9 Leiomyoma of uterus, unspecified; D35.00 Benign neoplasm of unspecified adrenal gland; E11.40 Type 2 diabetes mellitus with diabetic neuropathy, unspecified; E78.00 Pure hypercholesterolemia, unspecified; E78.5 Hyperlipidemia, unspecified; F17.200 Nicotine dependence, unspecified, uncomplicated; F41.9 Anxiety disorder, unspecified; G44.209 Tension-type headache, unspecified, not intractable; I10 Essential (primary) hypertension; J44.9 Chronic obstructive pulmonary disease, unspecified; K21.9 Gastro-esophageal reflux disease without esophagitis; K57.10 Diverticulosis of small intestine without perforation or abscess without bleeding; M79.7 Fibromyalgia; N94.6 Dysmenorrhea, unspecified; Z86.711 Personal history of pulmonary embolism; Z96.651 Presence of right artificial knee joint; F32.A Depression, unspecified; G62.9 Polyneuropathy, unspecified; G89.29 Other chronic pain; M19.90 Unspecified osteoarthritis, unspecified site; Z90.49 Acquired absence of other specified parts of digestive tract; Z20.822 Contact with and (suspected) exposure to COVID-19; Z88.8 Allergy status to other drugs, medicaments and biological substances; Z91.013 Allergy to seafood
CPT/HCPCS: 36415; 70450; 71045; 80053; 80307; 81001; 83690; 83735; 83880; 84484; 85025; 93005; 94640; 94760; 96374; J2930; U0003; 99285-25; G0378; J7613; J7626